=== PATIENT | female | born 1930 | race Caucasian/White ===

== ENCOUNTER 2020-01-28 18:12 | Inpatient (IN) | payer OTHER ==
--- OUTSIDE RECORDS SUMMARY | 2020-01-28 18:19 | XMS REPORT | Clinical Summary ---
:1930 Author Organization [facility] Address [address] [place] [address] Care Team Providers Name Role Phone MD Kiel Primary Care Provider Allergies Active Allergy Reactions Severity Noted Date Comments Angiotensin Iii,Human Other (See Comments) 11/13/2016 Clonidine Other (See Comments) 11/13/2016 Erythromycin GI Intolerance 11/13/2016 Canagliflozin Other (See Comments) 11/13/2016 Lisinopril Other (See Comments) 11/13/2016 Tetracyclines Other (See Comments) 11/13/2016 Metoprolol Succinate Other (See Comments) 11/13/2016 Medications Medication Sig Dispensed Refills Start Date End Date Status isosorbide mononitrate Take 120 mg by 0 Active (IMDUR) 120 MG 24 hr mouth daily. tablet potassium chloride Take 20 mEq by 0 Active (K-DUR,KLOR-CON) 10 MEQ mouth daily. CR tablet amLODIPine (NORVASC) Take 2.5 mg by 0 Active 2.5 mg tablet mouth daily. PARoxetine (PAXIL) 20 Take 20 mg by 0 Active MG tablet mouth every morning. atenolol (TENORMIN) 50 Take 50 mg by 0 Active MG tablet mouth daily. losartan (COZAAR) 100 Take 100 mg by 0 Active MG tablet mouth daily. rosuvastatin (CRESTOR) Take 20 mg by 0 Active 20 MG tablet mouth nightly. levothyroxine Take 50 mcg by 0 A ctive (SYNTHROID, LEVOXYL) 50 mouth every mcg tablet morning. glimepiride (AMARYL) 4 Take 4 mg by 0 Active MG tablet mouth 2 (two) times a day. furosemide (LASIX) 20 Take 20 mg by 0 Active mg tablet mouth daily. verapamil sustained Take 120 mg by 0 Active release (CALAN-SR) 120 mouth daily. MG SR tablet liraglutide (VICTOZA) Inject 1.2 mg 0 Active 0.6 mg/0.1 mL (18 mg/3 under the skin mL) pen injector daily with breakfast. empagliflozin Take 25 mg by 0 Ac tive (JARDIANCE) 25 mg mouth daily. tablet clopidogrel (PLAVIX) 75 Take 1 tablet (75 30 tablet 11 11/15/19 17 Active mg tablet mg total) by mouth daily. apixaban (ELIQUIS) 5 mg Take 5 mg by 0 Active tablet mouth 2 (two) times a day. ascorbic acid, vitamin Take 500 mg by 0 Active C, (VITAMIN C) 500 MG mouth daily. tablet turmeric root extract Take 500 mg by 0 Active 500 mg capsule mouth daily. nitroglycerin Place 0.4 mg 0 Act micaela (NITROSTAT) 0.4 MG SL under the tongue tablet every 5 (five) minutes as needed for chest pain. 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 Last Filed Vital Signs Not on file Plan of Treatment Health Maintenance Due Date Last Done Comments SHINGLES VACCINES (#1) 1980 65+ PNEUMOCOCCAL VACCINE (1 of 2 - PCV13) 10/31/1995 INFLUENZA VACCINE 01/23/2020 Implants Implanted Type Area In Flight Refueling System Repairer Device Shelf Model / Identifier Expiration Serial / Lot Date Accolade Mri Pacemaker - [id number] Cardiac Pacemaker N/A: B [place] 11/14/2019 [id number] / Implanted: 01/15/2018 at [facility] (Quantity not on file) Gen erators N/A [employer]- [id number] / [id number] Device Vasclr Clsr Baln Cath 10ml Lkng Syr 6fr 7fr Myn xgrip - [id number] Cardiovascular N/A: CARDINAL 09/21/2018 [id number] / Implanted: 11/13/2016 at [facility] (Quantity not on file) Imp lants N/A [facility] / [id number] Envelope Pcemkr Antbactl Fully Resorb Aigisrxr - [id number] Cardiovascular N/A: [employer] [id number] / Implanted: 01/15/2018 at [facility] (Quantity not on file) Implants N/A / Stent Cor Resolute Integrity Ztrlims-Eltng Otw 2.5x14m m - [id number] Coronary Stents N/A: [employer] [place] 07/31/2017 [id number] / Implanted: 11/13/2016 at [facility] (Quantity not on file) N/A - VASCULAR / [id number] [place] Results Not on fileafter 01/27/2019 Insurance Payer Benefit Plan / Subscriber ID Effective Dates Phone Addre ss Type Group MEDICARE MEDICARE PART A xxxxxxxxxxx 1995-Present [place], [place] Medicare AND B AETNA AETNA PPO OPEN xxxxxx 2000-Present PPO CHOICE Advance Directives For more information, please contact: [phone] Type Date 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
--- OUTSIDE RECORDS SUMMARY | 2020-01-28 18:19 | XMS REPORT | Continuity of Care Document ---
:1930 Author Organization [facility] t Address [address] [place] [address] Care Team Providers Name Role Phone Kiel SANDOVAL Primary Care Physician Bridger Narvaez MD Attending Clinician Aidan ERAZO S Attending Clinician Problems Condition Condition Condition Status Onset Resolution Last Treating Co mments Source Name Details Category Date Date Treatment Clinician Date 2nd degree 2nd degree Disease Active [place] atrioventr atrioventr 01-15 [facility] icular icular 00:00: st block block 00 Coronary Coronary Disease Active [place] artery artery 11-13 [facility] disease disease 00:00: st 00 Allergies, Adverse Reactions, Alerts Allergy Allergy Status Severity Reaction(s) Onset Inactive Treating Comm ents Source Name Type Date Date Clinician Angioten Propensi Active Other (See Ney swanson sin ty to Comments) 11-13 [facility] Iii,Margareth adverse 00:00: st n reaction 00 s to drug Clonidin Propensi Active Other (See Ney swanson e ty to Comments) 11-13 [facility] adverse 00:00: st reaction 00 s to drug Erythrom Propensi Active GI [place] ycin ty to Intolerance 11-13 Metho di adverse 00:00: st reaction 00 s to drug Canaglif Propensi Active Other (See Ney swanson lozin ty to Comments) 11-13 [facility] adverse 00:00: st reaction 00 s to drug Lisinopr Propensi Active Other (See [place] il ty to Comments) 11-13 [facility] adverse 00:00: st reaction 00 s to drug Tetracyc Propensi Active Other (See [place] lines ty to Comments) 11-13 [facility] adverse 00:00: st reaction 00 s to drug Metoprol Propensi Active Other (See [place] ol ty to Comments) 11-13 [facility] Succinat adverse 00:00: st e reaction 00 s to drug Family History Family Member Diagnosis Comments Start Date Stop Date Source Natural father Diabetes [facility] Natural father Heart disease [facility] Natural mother Diabetes [facility] Natural mother Heart disease [facility] Natural mother Hypertension [facility] Social History Social Habit Start Date Stop Date Quantity Comments Source Sex Assigned At [facility] Alcohol intake 2018-01-21 2018-01-21 Current [facility] 00:00:00 00:00:00 non-drinker of alcohol (finding) Smoking Status Start Date Stop Date Source Never smoker [place] t Medications Ordered Filled Start Stop Current Ordering Indication Dosage Frequency Signature Comments Components Source Medication Medication Date Date Medication? Clinician (SIG) Name Name isosorbide Yes 120mg QD Take 120 [place] mononitrate 7-27 mg by [facility] (IMDUR) 120 12:54: mouth st MG 24 hr 25 daily. tablet potassium Yes 20meq QD Take 20 [place] chloride 7-27 mEq by [facility] (K-DUR,KLOR 12:54: mouth st -CON) 10 25 daily. MEQ CR tablet amLODIPine Yes 2.5mg QD Take 2.5 [place] (NORVASC) 7-27 mg by [facility] 2.5 mg 12:54: mouth st tablet 25 daily. PARoxetine 2018 Yes 20mg QD Take 20 mg [place] (PAXIL) 20 7-27 by mouth Metho di MG tablet 12:54: every st 25 morning. atenolol 20180 Yes 50mg QD Take 50 mg Maura ston (TENORMIN) 7-27 by mouth Metho di 50 MG 12:54: daily. st tablet 25 losartan Yes 100mg QD Take 100 [place] (COZAAR) 7-27 mg by [facility] 100 MG 12:54: mouth st tablet 25 daily. rosuvastati 2018-0 Yes 20mg QD Take 20 mg Renee n (CRESTOR) 7-27 by mouth Meth edel 20 MG 12:54: nightly. st tablet 25 levothyroxi 2018-0 Yes 50ug QD Take 50 Maura ston ne 7-27 mcg by [facility] (SYNTHROID, 12:54: mouth st LEVOXYL) 50 25 every mcg tablet morning. glimepiride 2018-0 Yes 4mg Q.5D Take 4 mg [place] (AMARYL) 4 7-27 by mouth 2 Met hodi MG tablet 12:54: (two) st 25 times a day. furosemide 2018-0 Yes 20mg QD Take 20 mg [place] (LASIX) 20 7- by mouth Metho di mg tablet 12:54: daily. st 25 verapamil 2017-0 Yes 120mg QD Take 120 [place] ston sustained 7-27 mg by [facility] release 12:54: mouth st (CALAN-SR) 25 daily. 120 MG SR tablet liraglutide Yes 1.2mg QD Inject 1.2 Renee (VICTOZA) 7-27 mg under Method i 0.6 mg/0.1 12:54: the skin st mL (18 mg/3 25 daily with mL) pen breakfast. injector empaglifloz 2017-0 Yes 25mg QD Take 25 mg Renee in 7- by mouth [facility] (JARDIANCE) 12:54: daily. st 25 mg 25 tablet apixaban 0 Yes 5mg Q.5D Take 5 mg [place] (ELIQUIS) 5 7- by mouth 2 Me [place] mg tablet 12:54: (two) st 25 times a day. ascorbic 2018-0 Yes 500mg QD Take 500 [place] acid, 7-27 mg by [facility] vitamin C, 12:54: mouth st (VITAMIN C) 25 daily. 500 MG tablet turmeric 2018-0 Yes 500mg QD Take 500 [place] root 7-27 mg by [facility] extract 500 12:54: mouth st mg capsule 25 daily. nitroglycer 2018-[address] 0.4 [place] in 7-27 mg under [facility] (NITROSTAT) 12:54: the tongue st 0.4 MG SL 25 every 5 tablet (five) minutes as needed for chest pain. clopidogrel 2017 Yes 75mg QD Take 1 [place] (PLAVIX) 75 5-24 tablet (75 Me th[place] mg tablet 00:00: mg total) st 00 by mouth daily. Procedures This patient has no known procedures. Plan of Care Planned Activity Planned Date Details Comments Source Future Scheduled 2020-01-23 INFLUENZA VACCINE [place] [facility] 00:00:00 [code = INFLUENZA VACCINE] Future Scheduled 1995[birth year]10[birth year] 65+ PNEUMOCOCCAL [facility] 00:00:00 VACCINE (1 of 2 - PCV13) [code = 65+ PNEUMOCOCCAL VACCINE (1 of 2 - PCV13)] Future Scheduled 1980 SHINGLES VACCINES (#1) [place] [facility] 00:00:00 [code = SHINGLES VACCINES (#1)] Encounters Start End Encounter Admission Attending Care Care Encounter Source Date/Time Date/Time Type Type Clinicians Facility Department ID 2019-09-17 2019-09-17 Refill Brice HIHILDA [id number] 00:00:00 00:00:00 [facility] [id number] Surgical [id number] Specialti [id number] [address] [place] 2019-08-01 2019-08-01 Refill CUCA Bermudez [id number] 00:00:00 00:00:00 [facility] [id number] Surgical [id number] Specialti [id number] es [address] [place] 2019-03-12 2019-03-12 Office Aidan HIHILDA [id number] 14:13:03 15:41:22 Visit [facility] [id number] Surgical [id number] Specialti [id number] es [address] [place] Results This patient has no known results.
[2020-01-28 18:55] LABS: Absolute Lymphocytes (CBC) 0.7 K/uL (0.7-4.9); Basophils % 0.3 % (0-1.3); Hematocrit 34.7 % (36.0-45.0); Lymphocytes % 4.6 % (15.3-44.8); MPV 7.9 fL (7.6-11.3); RBC Red Blood Cell Count 3.84 M/uL (3.86-4.86)
--- NOTE | 2020-01-28 19:03 | RAD REPORT ---
EXAM DESCRIPTION: CT - Head Brain Wo Cont - 01/28/2020 6:55 pm CLINICAL HISTORY: NUMBNESS Headache, drowsiness COMPARISON: HEAD BRAIN W O CONTRAST dated 12/18/2012; HEAD BRAIN W O CONTRAST dated 12/15/2008 TECHNIQUE: All CT scans are performed using dose optimization technique as appropriate and may inclu de automated exposure control or mA/KV adjustment according to patient size. FINDINGS: No intracranial hemorrhage, hydrocephalus or extra-axial fluid collection.Mild generalized brain atrophy.No areas of brain edema or evidence of midline shift. The paranasal sinuses and mastoids are clear. The calvarium is intact. IMPRESSION: No acute intracranial abnormality.
[2020-01-28 19:05] LABS: Albumin 2.9 g/dL (3.4-5.0); Bilirubin Direct 0.4 mg/dL (0-0.2); Bilirubin Total 1.4 mg/dL (0.2-1.0); Potassium 4.8 mmol/L (3.5-5.1); Protein, Total 6.5 g/dL (6.4-8.2)
--- NOTE | 2020-01-28 19:06 | RAD REPORT ---
EXAM DESCRIPTION: CT - Abdomen Pelvis Wo Contrast - 01/28/2020 6:58 pm CLINICAL HISTORY: Abdominal pain. ABD PAIN COMPARISON: No comparisons TECHNIQUE: CT imaging of the abdomen and pelvis was performed without contrast. Solid organ, bowel a nd vascular assessment is limited due to lack of IV and oral contrast. All CT scans are performed using dose optimization technique as appropriate and may include automated exposure control or mA/KV adjustment according to patient size. FINDINGS: The lower lung orellana are clear.Small hiatal hernia. The liver, spleen, pancreas, adrenal glands and right kidney are within normal limits for a limited n on-contrast examination. Punctate calculus is seen inferior left kidney. The gallbladder is mildly di stended. Aortoiliac atherosclerosis. No bowel obstruction, free air, free fluid or abscess. A large amount of stool is retained in the sig moid colon where numerous diverticula are present. There is also inflammation in the fat surrounding the sigmoid colon. Mild extraluminal air bubbles are present in the region as well. Appendectomy susp ected. The osseous structures are within normal limits. IMPRESSION: Moderately severe acute sigmoid diverticulitis is suspected with mild extraluminal air p resent, likely related to diverticular perforation. No peridiverticular abscess seen. There is signif icant retained stool in the rectosigmoid colon. A limited non-contrast examination was performed as detailed.
--- NOTE | 2020-01-28 19:40 | EDPHYS ---
Physician Documentation [facility] Name: Mallika Ernst Age: 89 yrs Sex: Female : 1930 Arrival Date: 01/28/2020 Time: 18:17 Bed 19 Private MD: ED Physician Hasmukh Singh HPI: 01/27 19:35 This 89 yrs old Female presents to ER via EMS with complaints of abdominal kb pain. 19:35 The patient presents with abdominal pain right lower quadrant. Onset: The kb symptoms/episode began/occurred yesterday. The symptoms do not radiate. Associated signs and symptoms: Pertinent negatives: nausea, vomiting, and diarrhea, constipation, fever. The symptoms are described as constant. Modifying factors: The symptoms are alleviated by nothing, the symptoms are aggravated by nothing. Severity of pain: At its worst the pain was moderate in the emergency department the pain is unchanged. The patient has experienced similar episodes in the past. The patient has not recently seen a physician. Pt reports pain to RLQ and numbness around mouth. States pain started yesterday and numbness has been going on for a long time. Denies n/v/d/constipation. States she had similar episode about 6 weeks ago, but this time the pain is more severe. Called Dr Dyson and was told to come to the ER. Historical: - Allergies: 18:32 canagliflozin; ph 18:32 Clonidine; ph 18:32 Erythromycin; ph 18:32 Lisinopril; ph 18:32 metoprolol succinate; ph 18:32 TETRACYCLINES; ph - Immunization history:: Adult Immunizations unknown. - Social history:: Smoking status: Patient denies any tobacco usage or history of. ROS: 19:33 Constitutional: Negative for fever, chills, and weight loss, Cardiovascular: Negative kb for chest pain, palpitations, and edema, Respiratory: Negative for shortness of breath, cough, wheezing, and pleuritic chest pain, Back: Negative for injury and pain, MS/Extremity: Negative for injury and deformity, Skin: Negative for injury, rash, and discoloration. 19:33 Abdomen/GI: Positive for abdominal pain, Negative for nausea, vomiting, and diarrhea, constipation, abdominal cramps, abdominal distension, anorexia. 19:33 Neuro: Positive for numbness. Exam: 19:37 Constitutional: This is a well developed, well nourished patient who is awake, alert, kb and in no acute distress. Head/Face: Normocephalic, atraumatic. Neck: Trachea midline, no thyromegaly or masses palpated, and no cervical lymphadenopathy. Supple, full range of motion without nuchal rigidity, or vertebral point tenderness. No Meningismus. Chest/axilla: Normal chest wall appearance and motion. Nontender with no deformity. No lesions are appreciated. Cardiovascular: Regular rate and rhythm with a normal S1 and S2. No gallops, murmurs, or rubs. Normal PMI, no JVD. No pulse deficits. Respiratory: Lungs have equal breath sounds bilaterally, clear to auscultation and percussion. No rales, rhonchi or wheezes noted. No increased work of breathing, no retractions or nasal flaring. Back: No spinal tenderness. No costovertebral tenderness. Full range of motion. Skin: Warm, dry with normal turgor. Normal color with no rashes, no lesions, and no evidence of cellulitis. MS/ Extremity: Pulses equal, no cyanosis. Neurovascular intact. Full, normal range of motion. Neuro: Awake and alert, GCS 15, oriented to person, place, time, and situation. Cranial nerves II-XII grossly intact. Motor strength 5/5 in all extremities. Sensory grossly intact. Cerebellar exam normal. Normal gait. 19:37 Abdomen/GI: Inspection: abdomen appears normal, Bowel sounds: normal, in all quadrants, Palpation: soft, in all quadrants, mild abdominal tenderness, in the left upper quadrant and left lower quadrant, moderate abdominal tenderness, in the right upper quadrant and right lower quadrant. Vital Signs: 18:21 BP 104 / 43; Pulse 65; Resp 18; Temp 97.8; Pulse Ox 96% on R/A; Weight 58.06 kg; Height ph 5 ft. 2 in. (157.48 cm); 20:50 BP 84 / 39; Pulse 59; Resp 20; Pulse Ox 94% ; ao 21:20 BP 80 / 40; Pulse 59; Resp 18; Pulse Ox 94% ; Pain 0/10; ao 21:35 BP 81 / 39; Pulse 57; Resp 16; Pulse Ox 96% on 2 lpm NC; ao 22:09 BP 76 / 43; Pulse 60; Resp 20; Pulse Ox 92% on 2 lpm NC; Pain 0/10; ao 22:25 BP 81 / 47; Pulse 61; Resp 16; Pulse Ox 92% ; ao 22:40 BP 72 / 42; Pulse 62; Resp 18; Pulse Ox 94% 2 lpm ; ao 23:00 BP 75 / 61; Pulse 60; Resp 20; Pulse Ox 92% on 2 lpm NC; ao 23:15 BP 77 / 49; Pulse 59; Resp 16; Pulse Ox 92% on 2 lpm NC; ao 18:21 Body Mass Index 23.41 (58.06 kg, 157.48 cm) ph MDM: 18:18 Patient medically screened. kb 19:34 Data reviewed: vital signs, nurses notes. Data interpreted: Pulse oximetry: on room air kb is 96 %. Interpretation: normal. Counseling: I had a detailed discussion with the patient and/or guardian regarding: the historical points, exam findings, and any diagnostic results supporting the discharge/admit diagnosis, lab results, radiology results, the need for further work-up and treatment in the hospital. Physician consultation: Darvin Almodovar MD was contacted at 19:35, regarding consult, patient's condition, and will see patient in inpatient room. 19:35 Physician consultation: Dayday Dyson MD was contacted at 19:35, regarding admission, to the medical/surgical unit. patient's condition, and will see patient in inpatient room, Wants the following admission orders put in: Cipro 250mg IV BID, Flagyl 500mg IV TID, Moderate sliding scale, 1/2NS at 50cc/hr, zofran 4mg Q6 PRN, dilaudid 1mg Q6 PRN.. 01/27 18:23 Order name: Basic Metabolic Panel 01/27 18:23 Order name: CBC with Diff 01/27 18:23 Order name: Hepatic Function 01/27 18:23 Order name: Lipase 01/27 19:06 Order name: Basic Metabolic Panel; Complete Time: 19:07 EDMS 01/27 19:06 Order name: Liver (Hepatic) Function; Complete Time: 19:07 EDMS 01/27 19:06 Order name: Lipase; Complete Time: 19:07 EDMS 01/27 19:07 Order name: CBC with Automated Diff; Complete Time: 19:09 EDMS 01/27 19:10 Order name: CREATININE WHOLE BLOOD; Complete Time: 19:11 EDMS 01/27 19:33 Order name: Protime (+inr) kb 01/27 19:33 Order name: Ptt, Activated kb 01/27 20:30 Order name: Protime (+INR); Complete Time: 20:33 EDMS 01/27 20:30 Order name: PTT, Activated Partial Thromb; Complete Time: 20:33 EDMS 01/28 01:39 Order name: Glucose, Ancillary Testing; Complete Time: 01:40 EDMS 01/27 18:23 Order name: CT Abd/Pelvis - IV Contrast Only kb 01/27 18:23 Order name: CT Head Brain wo Cont kb 01/27 19:06 Order name: CT; Complete Time: 19:07 EDMS 01/27 19:08 Order name: CT; Complete Time: 19:09 EDMS 01/28 06:04 Order name: CBC with Automated Diff EDMS 01/28 06:28 Order name: Basic Metabolic Panel EDMS 01/28 06:56 Order name: Manual Differential EDMS 01/28 07:31 Order name: Glucose, Ancillary Testing EDMS 01/27 18:23 Order name: IV Saline Lock; Complete Time: 18:52 kb 01/27 18:23 Order name: Labs collected and sent; Complete Time: 18:52 kb Administered Medications: 19:44 Drug: Flagyl 500 mg Volume: 100 ml; Route: IVPB; Rate: 200 ml/hr; Infused Over: 30 ao mins; Site: left antecubital; 21:18 Follow up: IV Status: Completed infusion; IV Intake: 100ml ao 19:45 Drug: fentaNYL (PF) 25 mcg Route: IVP; Site: left antecubital; ao 21:18 Follow up: Response: No adverse reaction; RASS: Light sedation (-2) ao 19:45 Drug: Zofran (Ondansetron) 4 mg Route: IVP; Site: left antecubital; ao 21:18 Follow up: Response: No adverse reaction ao 19:45 Drug: NS 0.45 % 1000 ml Route: IV; Rate: 50 ml/hr; Site: left antecubital; ao 23:30 Follow up: IV Status: Completed infusion; IV Intake: 500ml ao 20:51 Drug: NS 0.9% 500 ml Route: IV; Rate: bolus; Site: left forearm; ao 23:31 Follow up: IV Status: Completed infusion; IV Intake: 500ml ao 21:17 Drug: Cipro 200 mg Volume: 100 ml; Route: IVPB; Infused Over: 60 mins; Site: left ao antecubital; 23:31 Follow up: IV Status: Completed infusion; IV Intake: 252ml ao 22:05 Drug: NS 0.9% 500 ml Route: IV; Rate: bolus; Site: left forearm; ao 23:31 Follow up: IV Status: Completed infusion; IV Intake: 500ml ao 22:06 Drug: Zofran (Ondansetron) 4 mg Route: IVP; Site: left forearm; ao 23:31 Follow up: Response: No adverse reaction ao Disposition: 01/28 10:42 Co-signature as Attending Physician, Hasmukh Singh MD I agree with the assessment and kdr plan of care. Disposition: 01/28/20 19:40 Hospitalization ordered by Dayday Dyson for Inpatient Admission. Preliminary diagnosis is Diverticulitis of intestine, part unspecified, with perforation and abscess without bleeding - perforation, no abscess. - Bed requested for [facility] ER HOLD. - Status is Inpatient Admission. iw - Condition is Stable. - Problem is new. - Symptoms are unchanged. Signatures: Dispatcher [employer] EDMS Argentina Arreola, GALLEY HAND-C GALLEY HAND-CkHasmukh Gonzales MD MD [facility] Janae Us RN RN Idania Menjivar RN RN Shea Lowe, [place] MYERS Wesley Keenan RN RN ao Corrections: (The following items were deleted from the chart) 01/27 19:41 19:35 Physician consultation: Dayday Dyson MD was contacted at 19:35, regarding kb admission, to the medical/surgical unit. patient's condition, and will see patient in inpatient room, 21:02 19:40 Hospitalization Ordered by Dayday Dyson MD for Inpatient Admission. Preliminary cg diagnosis is Diverticulitis of intestine, part unspecified, with perforation and abscess without bleeding - perforation, no abscess. Bed requested for Telemetry/MedSurg (Inpatient). Status is Inpatient Admission. Condition is Stable. Problem is new. Symptoms are unchanged. kb 22:03 21:02 01/28/2020 19:40 Hospitalization Ordered by Dayday Dyson MD for Inpatient cg Admission. Preliminary diagnosis is Diverticulitis of intestine, part unspecified, with perforation and abscess without bleeding - perforation, no abscess. Bed requested for Telemetry/MedSurg (Inpatient). Status is Inpatient Admission. Condition is Stable. Problem is new. Symptoms are unchanged. 23:12 22:03 01/28/2020 19:40 Hospitalization Ordered by Dayday Dyson MD for Inpatient cg Admission. Preliminary diagnosis is Diverticulitis of intestine, part unspecified, with perforation and abscess without bleeding - perforation, no abscess. Bed requested for Intensive Care Unit. Status is Inpatient Admission. Condition is Stable. Problem is new. Symptoms are unchanged. 01/28 08:29 08 23:12 01/28/2020 19:40 Hospitalization Ordered by Dayday Dyson MD for Inpatient iw Admission. Preliminary diagnosis is Diverticulitis of intestine, part unspecified, with perforation and abscess without bleeding - perforation, no abscess. Bed requested for [facility] ER HOLD. Status is Inpatient Admission. Condition is Stable. Problem is new. Symptoms are unchanged. 01/28 08:32 08:29 01/28/2020 19:40 Hospitalization Ordered by Dayday Dyson MD for Inpatient iw Admission. Preliminary diagnosis is Diverticulitis of intestine, part unspecified, with perforation and abscess without bleeding - perforation, no abscess. Bed requested for [facility] ER HOLD. Status is Inpatient Admission. Condition is Stable. Problem is new. Symptoms are unchanged. iw
--- NOTE | 2020-01-28 19:40 | ER ---
Nurse's Notes [facility] Name: Mallika Ernst Age: 89 yrs Sex: Female : 1930 Arrival Date: 01/28/2020 Time: 18:17 Bed 19 Private MD: Diagnosis: Diverticulitis of intestine, part unspecified, with perforation and abscess without bleeding-perforation, no abscess Presentation: 01/27 18:21 Chief complaint: EMS states: Pt from home, reports RLQ last night, today had L arm ph numbness and SOB w/ exertion, denies fever, chills, cough, N/V/D, VSS. Coronavirus screen: Client denies travel out of the [place] in the last 14 days. At this time, the client does not indicate any symptoms associated with coronavirus-19. The client reports previous COVID testing was negative. reports COVID test approx 2 weeks ago. Ebola Screen: No symptoms or risks identified at this time. Initial Sepsis Screen: Does the patient meet any 2 criteria? No. Patient's initial sepsis screen is negative. Does the patient have a suspected source of infection? No. Patient's initial sepsis screen is negative. Risk Assessment: Do you want to hurt yourself or someone else? Patient reports no desire to harm self or others. Onset of symptoms was January 28, 2020. 18:21 Method Of Arrival: EMS: [facility] ph 18:21 Method Of Arrival: EMS: [facility] ph 18:21 Acuity: DIOGENES 3 ph Historical: - Allergies: 18:32 canagliflozin; ph 18:32 Clonidine; ph 18:32 Erythromycin; ph 18:32 Lisinopril; ph 18:32 metoprolol succinate; ph 18:32 TETRACYCLINES; ph - Immunization history:: Adult Immunizations unknown. - Social history:: Smoking status: Patient denies any tobacco usage or history of. Screenin:27 Abuse screen: Denies threats or abuse. Denies injuries from another. Nutritional ph screening: No deficits noted. Tuberculosis screening: No symptoms or risk factors identified. Fall Risk None identified. Assessment: 18:59 General: Appears in no apparent distress. comfortable, well groomed, Behavior is calm, ph cooperative, appropriate for age, Denies fever, feeling ill. Pain: Complains of pain in right lower quadrant. Neuro: Level of Consciousness is awake, alert, obeys commands, Oriented to person, place, time, situation, Reports numbness in left arm, now resolved. Cardiovascular: Reports shortness of breath, Denies chest pain, lightheadedness, nausea, Capillary refill < 3 seconds in bilateral fingers Patient's skin is warm and dry. Respiratory: Reports shortness of breath on exertion Airway is patent Respiratory effort is even, unlabored, Respiratory pattern is regular, symmetrical, Denies cough. GI: Abdomen is round Reports lower abdominal pain, Patient currently denies diarrhea, nausea, vomiting. Derm: Skin is intact, is healthy with good turgor, Skin is pink, warm \T\ dry. Musculoskeletal: Circulation, motion, and sensation intact. Range of motion: intact in all extremities. 20:50 Reassessment: Patient fainted when trying to get up to the bathroom. BP was 80/40. satish Arreola NP notified and ordered 500 NS Bolus. 21:30 Reassessment: Provided with O2 NC per hospital protocol. ao 22:00 Reassessment: Called Dr Dyson to notified low blood pressure. Ordered 500 NS bolus ao and Zofran 4 mg Q4hr as needed for nausea. also want an ICU bed. Dr Dyson was notified that unknown if ICU bed available and charge nurse will be notified. 22:17 Reassessment: this RN spoke to dry house operator Shea YMERS on need for ICU bed was bb informed no ICU beds are available requested pt be transferred for higher level of care. Transfer refused by Dr Dyson according to Shea MYERS. 23:00 Reassessment: Dr Almodovar notified of need for central line per Dr Dyson. bb 23:26 Reassessment: Patient is admitted to the hospital. See [facility] for documentation. ao 01/28 07:00 Reassessment: RECD REPORT FROM MARVIN MYERS. 89YO WF P/W WEAKNESS AND HYPOTENSION. ICU ADMIT bp IN PROCESS. SEE [facility] FOR FURTHER DOCUMENTATION. Vital Signs: 01/27 18:21 BP 104 / 43; Pulse 65; Resp 18; Temp 97.8; Pulse Ox 96% on R/A; Weight 58.06 kg; Height ph 5 ft. 2 in. (157.48 cm); 20:50 BP 84 / 39; Pulse 59; Resp 20; Pulse Ox 94% ; ao 21:20 BP 80 / 40; Pulse 59; Resp 18; Pulse Ox 94% ; Pain 0/10; ao 21:35 BP 81 / 39; Pulse 57; Resp 16; Pulse Ox 96% on 2 lpm NC; ao 22:09 BP 76 / 43; Pulse 60; Resp 20; Pulse Ox 92% on 2 lpm NC; Pain 0/10; ao 22:25 BP 81 / 47; Pulse 61; Resp 16; Pulse Ox 92% ; ao 22:40 BP 72 / 42; Pulse 62; Resp 18; Pulse Ox 94% 2 lpm ; ao 23:00 BP 75 / 61; Pulse 60; Resp 20; Pulse Ox 92% on 2 lpm NC; ao 23:15 BP 77 / 49; Pulse 59; Resp 16; Pulse Ox 92% on 2 lpm NC; ao 18:21 Body Mass Index 23.41 (58.06 kg, 157.48 cm) ph ED Course: 18:17 Patient arrived in ED. ph 18:18 Argentina Arre[facility] FNP-C [facility] kb 18:18 Hasmukh Singh MD is Attending Physician. kb 18:21 Idania Menjivar, [place] is Primary Nurse. ph 18:26 Triage completed. ph 18:27 Arm band placed on Patient placed in an exam room, on a stretcher, on library monitor, ph on pulse oximetry. 18:27 Patient has correct armband on for positive identification. Placed in gown. Bed in low ph position. Call light in reach. Side rails up X2. monitor technician on. Pulse ox on. NIBP on. 18:40 Inserted saline lock: 20 gauge in right antecubital area, using aseptic technique. ao ,using aseptic technique. Day Shift tech. 19:39 Dayday Dyson MD is Hospitalizing Provider. kb 23:08 Procedure consent signed by patient. bb 23:30 No provider procedures requiring assistance completed. Patient admitted, IV remains in ao place. 01/28 07:08 Primary Nurse role handed off by Idania Menjivar, [place] bp 07:08 Alex Gomes, [place] is Primary Nurse. bp Administered Medications: 01/27 19:44 Drug: Flagyl 500 mg Volume: 100 ml; Route: IVPB; Rate: 200 ml/hr; Infused Over: 30 ao mins; Site: left antecubital; 21:18 Follow up: IV Status: Completed infusion; IV Intake: 100ml ao 19:45 Drug: fentaNYL (PF) 25 mcg Route: IVP; Site: left antecubital; ao 21:18 Follow up: Response: No adverse reaction; RASS: Light sedation (-2) ao 19:45 Drug: Zofran (Ondansetron) 4 mg Route: IVP; Site: left antecubital; ao 21:18 Follow up: Response: No adverse reaction ao 19:45 Drug: NS 0.45 % 1000 ml Route: IV; Rate: 50 ml/hr; Site: left antecubital; ao 23:30 Follow up: IV Status: Completed infusion; IV Intake: 500ml ao 20:51 Drug: NS 0.9% 500 ml Route: IV; Rate: bolus; Site: left forearm; ao 23:31 Follow up: IV Status: Completed infusion; IV Intake: 500ml ao 21:17 Drug: Cipro 200 mg Volume: 100 ml; Route: IVPB; Infused Over: 60 mins; Site: left ao antecubital; 23:31 Follow up: IV Status: Completed infusion; IV Intake: 252ml ao 22:05 Drug: NS 0.9% 500 ml Route: IV; Rate: bolus; Site: left forearm; ao 23:31 Follow up: IV Status: Completed infusion; IV Intake: 500ml ao 22:06 Drug: Zofran (Ondansetron) 4 mg Route: IVP; Site: left forearm; ao 23:31 Follow up: Response: No adverse reaction ao Intake: 21:18 IV: 100ml; Total: 100ml. ao 23:30 IV: 500ml; Total: 600ml. ao 23:31 IV: 252ml; Total: 852ml. ao 23:31 IV: 500ml; Total: 1352ml. ao 23:31 IV: 500ml; Total: 1852ml. ao Outcome: 19:40 Decision to Hospitalize by Provider. kb 23:30 Admitted to ER Hold. Please see [facility] for further documentation. ao 23:30 critical 23:30 Instructed on the need for admit. 01/28 08:32 Patient left the ED. iw Signatures: Argentina Arreola, TAMMY-C TAMMY-Kelsey Suarez RN RN bb Janae Us RN RN iw Idania Menjivar RN RN Marvin Keenan RN RN ao Alex Gomes RN RN bp Corrections: (The following items were deleted from the chart) 01/27 19:01 18:21 Pulse 65bpm; Resp 18bpm; Pulse Ox 96% RA; Temp 97.8F; 58.06 kg; Height 5 ft. 2 ph in.; BMI: 23.4; ph 21:30 20:50 BP 80 / 40; Pulse 59bpm; Resp 18bpm; Pulse Ox 94%; Pain 0/10; ao ao
[2020-01-28] MEDS ORDERED: NACHLORIDE 0.45% 1,000 ML IV ONE (19:44)
[2020-01-28] MEDS ORDERED: FENTANYL CITR 100 MCG/2 ML ONE (19:44)
[2020-01-28] MEDS ORDERED: Ciprofloxacin 200mg IV 200 MG/100 ML IV.SOLN. IV ONE (19:44)
[2020-01-28] MEDS ORDERED: ONDANSETRON 4 MG/2 ML VIAL ONE (19:44)
[2020-01-28] MEDS ORDERED: METRONIDAZOLE 500mg IVPB 500 MG/100 ML BAG IV ONE (19:44)
[2020-01-28 20:29] LABS: Protime INR 2.11
[2020-01-28] MEDS ORDERED: NACHLORIDE 0.45% 1,000 ML IV SCH (23:16)
[2020-01-28] MEDS: INSULIN -REGULAR HUMAN 50 UNIT/0.5 ML ML SQ SCH (23:16)
[2020-01-28] MEDS ORDERED: HYDROMORPHONE HCL 1 MG/ML INJ IV PRN (23:16)
[2020-01-28] MEDS: Ciprofloxacin 200mg IV 200 MG/100 ML IV.SOLN. IV SCH (23:16)
[2020-01-28] MEDS ORDERED: NOREPINEPHRINE 4 MG in D5W 250 ML IV PRN (23:16)
[2020-01-28] MEDS ORDERED: GLUCAGON 1 MG/VIAL IM PRN (23:16)
[2020-01-28] MEDS ORDERED: D50W 25 GM/50 ML SYRINGE/VIAL IV PRN (23:16)
[2020-01-28] MEDS ORDERED: ONDANSETRON 4 MG/2 ML VIAL IV PRN (23:16)
[2020-01-28] MEDS ORDERED: NOREPINEPHRINE 4mg/D5W 250mL 4 MG/250 ML BAG IV ONE (23:30)
[2020-01-28] MEDS ORDERED: NA CHLORIDE 0.9% 1,000 ML ONE (23:52)
--- NOTE | 2020-01-29 00:30 | P.HP ---
Date of Service: 01/28/20 PC: I was asked to console follow on this 89-year-old female who presented to the emergency room with severe lower abdominal pain. HPC: Patient and not feeling well earlier this week. Thought she felt something tear loose in her words yesterday. Pain intensified and she came to the emergency room PMH: History of CHF, coronary artery disease, insulin-dependent diabetes mellitus, previous strokes, angina PSHx: Previous pacemaker, heart stents, hysterectomy, appendectomy SOC: Allergic to tetracyclines, Norvasc, hydrochlorothiazide, clonidine, azithromycin, Toprol SYS REVIEW: States she was actually in fairly good health. Has not felt good this week however. Has not been drinking much fluids, last BM was about 48 hr ago. O/E awake alert comfortable at the moment BP 80/60 HEENT: Not jaundice Chest: Air entry equal bilaterally, pacemaker left-sided chest ABD: Abdomen is distended, with guarding and tenderness in these lower suprapubic area LOCO: Intact DATA: Elevated white cell count, CT scan shows acute diverticulitis with possible microperforation no evidence of any abscess IMPRESSION: Acute diverticulitis with micro perforation PLAN: The patient will be admitted at this time for IV fluids, antibiotics, and close observation. She will be going to the ICU for monitoring. She does not require surgical intervention at the moment,
--- NOTE | 2020-01-29 00:34 | P.OP ---
Date of Service: 01/29/20 Preoperative diagnosis: Hypotension, and lack of vascular access Postprocedural diagnosis: The same Procedure performed: Insertion of right subclavian venous catheter (triple- lumen) Attending: Dr. Almodovar Findings and Operative Technique The patient was positioned in the middle of the a gurney with an IV bag between her shoulders. The area of the right subclavicular area was then prepped with a chlorhexidine solution. She was draped in usual aseptic manner. After infiltrating will 1% lidocaine to allow for adequate analgesia, a finer needle was used to cannulate the subclavian vein. It was found on the 2nd pass of the needle. With good venous blood flow having been established a guidewire was passed down through this needle. The needle was then removed and using a modified Seldinger technique the insertion site was gently dilated. The dilator was taken off the wire and replaced with the triple-lumen catheter. The catheter was then passed down the wire taking care not to allow the wire to advance to approximately 15 cm at the skin level. At this point the guidewire was removed. The catheter flushed easily. It was packed with normal saline. The catheter was then sutured in place with the catheter pulled her. A sterile dressing was applied. A chest x-ray is pending. At the completion of the procedure the patient was in a stable condition.
--- NOTE | 2020-01-29 00:36 | P.PN ---
Date of Service: 01/29/20 S: Patient is well after her procedure, no specific complaints. Just states she has a low bit of nausea. O: Vital signs are stable, still has blood pressure in the 70s systolic. Chest x-ray shows catheter laying in good position no evidence of any pneumothorax. A successful insertion of central line P: May use central line, official report still pending.
[2020-01-29] MEDS ORDERED: ONDANSETRON 4 MG/2 ML VIAL ONE (00:57)
[2020-01-29] MEDS: METRONIDAZOLE 500mg IVPB 500 MG/100 ML BAG IV SCH ×3 (01:00→17:05)
[2020-01-29] MEDS ORDERED: INSULIN -REGULAR HUMAN 50 UNIT/0.5 ML ML ONE (01:44)
[2020-01-29] MEDS ORDERED: METRONIDAZOLE 500mg IVPB 500 MG/100 ML BAG IV ONE ×4 (03:56→23:48)
[2020-01-29 05:50] LABS: Absolute Lymphocytes (CBC) 0.9 K/uL (0.7-4.9); Basophils % 0.1 % (0-1.3); Hematocrit 33.7 % (36.0-45.0); Lymphocytes % 4.1 % (15.3-44.8); MPV 8.4 fL (7.6-11.3); RBC Red Blood Cell Count 3.67 M/uL (3.86-4.86)
[2020-01-29 06:21] LABS: Potassium 5.2 mmol/L (3.5-5.1)
[2020-01-29 06:56] LABS: Blood Morphology Comment NOT SEEN (NOT SEEN); Dohle Bodies PRESENT; Platelet Estimate ADEQ
[2020-01-29] MEDS: INSULIN -REGULAR HUMAN 50 UNIT/0.5 ML ML SQ SCH ×4 (07:30→20:58)
[2020-01-29] MEDS: HOME MED 1 EA UNK (Empagliflozin [Jardiance] 25 MG) PO SCH (09:00)
[2020-01-29] MEDS: atenoloL 50 MG TAB PO SCH (09:00)
[2020-01-29] MEDS: ISOSORBIDE MONO SR 60 MG TAB PO SCH (09:00)
[2020-01-29] MEDS: Ciprofloxacin 200mg IV 200 MG/100 ML IV.SOLN. IV SCH ×2 (09:58→21:12)
[2020-01-29] MEDS: CLOPIDOGREL 75 MG TABLET PO SCH (09:59)
[2020-01-29] MEDS: APIXABAN 2.5 MG TABLET PO SCH ×2 (10:00→20:58)
[2020-01-29] MEDS: DULOXETINE 30 MG CAP PO SCH (10:00)
[2020-01-29] MEDS ORDERED: CLOPIDOGREL 75 MG TABLET ONE (10:04)
[2020-01-29] MEDS ORDERED: Ciprofloxacin 200mg IV 200 MG/100 ML IV.SOLN. IV ONE ×2 (10:05→21:21)
--- NOTE | 2020-01-29 10:16 | P.HP ---
Certification for Inpatient Patient admitted to: Inpatient With expected LOS: >2 Midnights Practitioner: I am a practitioner with admitting privileges, knowledge of patient current condition, hospital course, and medical plan of care. Services: Services provided to patient in accordance with Admission requirements found in Title 42 Section 412.3 of the Code of Federal Regulations Patient History Date of Service: 01/29/20 Reason for admission: ABDOMEN PAIN, NAUSEA, CHILLS, WEAKNESS, NUMB L SIDE OF BODY History of Present Illness: MS. DANIELLE IS PATIENT WITH MANY MEDICAL ISSUES, DM, HTN, HISTORY OF CVA, A FIB, PVD WITH STENTS. CAD WITH STENTS, DIVERTICULOSIS, COMES WITH ABDOMEN PAIN, LOWER R SIDE, CHILLS, NAUSEA, UNSTEADY GAIT AND NUMBNESS OF L SIDE OF BODY FOR A DAY. SHE CALLED AND I ASKED HER TO ER SHE SEEMED VERY ILL TO BE IN ER WITH POSSIBLE ABDOMEN INFECTION, CVA AND HAD TO BE SCREENED FOR COVID. Allergies amlodipine besylate [From Norvasc] Allergy (Intermediate, Verified 12/18/12 20:18) cough azithromycin Allergy (Intermediate, Verified 12/18/12 20:17) Hives/Rash clonidine Allergy (Intermediate, Verified 12/18/12 20:17) Shortness of breath hydrochlorothiazide Allergy (Intermediate, Verified 12/18/12 20:17) Shortness of breath metoprolol succinate [From Toprol XL] Allergy (Intermediate, Verified 12/18/12 20:17) Nausea/Vomiting tetracycline [Tetracycline] Allergy (Intermediate, Verified 12/18/12 20:16) swelling Tetracyclines Allergy (Verified 01/28/20 21:40) Unknown Home Medications: Furosemide [Lasix*] 20 mg PO DAILY 12/18/12 Glimepiride 4 mg PO BID 12/18/12 Isosorbide Keith [Imdur*] 60 mg PO DAILY 12/18/12 Levothyroxine [Synthroid*] 50 mcg PO [id number] 12/18/12 Losartan Potassium [Cozaar] 100 mg PO DAILY 12/18/12 Potassium Chloride [K-Dur] 20 meq PO DAILY 12/18/12 Rosuvastatin [Crestor*] 20 mg PO BEDTIME 12/18/12 atenoloL [Tenormin*] 50 mg PO DAILY 12/18/12 Apixaban [Eliquis] 5 mg PO ONCE 01/29/20 Clopidogrel Bisulfate [Clopidogrel] 75 mg PO ONCE 01/29/20 Duloxetine HCl 30 mg PO DAILY 01/29/20 Empagliflozin [Jardiance] 25 mg PO DAILY 01/29/20 - Past Medical/Surgical History Diabetic: Yes -: Sleep Apnea -: Reflux -: CAd, CHF, DM -: TIA -: Atrial Fib -: htn -: depression -: hypothyroidism -: 4 heart stents -: hysterectomy -: appendectomy -: pacemaker - Social History Smoking Status: Never smoker Alcohol use: No CD- Drugs: No Caffeine use: Yes Review of Systems 10-point ROS is otherwise unremarkable General: Weakness, Malaise Gastrointestinal: Abdominal Pain, Distention, As per HPI Physical Examination - Vital Signs Temperature: 97.8 F Blood Pressure: 117/50 Pulse: 60 Respirations: 20 Pulse Ox (%): 98 - Physical Exam General: Alert, Moderate distress, Other HEENT: Atraumatic, PERRLA, Mucous membr. moist/pink, EOMI, Sclerae nonicteric Neck: Supple, 2+ carotid pulse no bruit, No LAD, Without JVD or thyroid abnormality Respiratory: Clear to auscultation bilaterally, Normal air movement Cardiovascular: Regular rate/rhythm, Normal S1 S2 Gastrointestinal: Absent bowel sounds, Tenderness (RLQ MODERATE WITH REBOUND.) Musculoskeletal: No tenderness Integumentary: No rashes Neurological: Normal gait, Normal speech, Normal strength at 5/5 x4 extr, Normal tone, Normal affect Lymphatics: No axilla or inguinal lymphadenopathy - Studies Laboratory Data (last 24 hrs) 01/28/20 18:30: WBC 14.7 H, Hgb 11.5 L, Hct 34.7 L, Plt Count 210 01/28/20 18:30: Sodium 136, Potassium 4.8, BUN 44 H, Creatinine 2.11 H, Glucose 181 H, Total Bilirubin 1.4 H, AST 16, ALT 19, Alkaline Phosphatase 72, Lipase 73 Assessment and Plan - Problems (Diagnosis) (1) Diverticulitis of colon with perforation Current Visit: Yes Status: Acute Plan: MS DANIELLE COMES WITH ACUTE DIVERTICULAR PEFORATION THAT IS MICRO-PERFORATION. SHE IS CLINICALLY BETTER, WE ARE ABLE TO TAPER OFF LEVOPHED. SHE NEEDED TWO BOLUSES AND LEVOPHED TO IMPROVE BP. SHE WAS GIVEN CIPRO AND FLAGYL FOR DIVERTICULTIS. Qualifiers: Diverticulitis bleeding: without bleeding Qualified Code(s): K57.20 - Diverticulitis of large intestine with perforation and abscess without bleeding (2) Diabetic peripheral vascular disease Current Visit: Yes Status: Chronic (3) Diabetes mellitus with cardiac complication Current Visit: Yes Status: Chronic Plan: CAD AND STENTS IN PAST. (4) A-fib Current Visit: Yes Status: Chronic Plan: CONTINUE MEDS. HAS PPM MAY HAVE TO HOLD ELIQUIS IF SURGERY NEEDS TO BE DONE. SHE IS AT HIGH RISK OF STOPPING ELIQUIS SO I WILL CONTINUE SHE ONLY HAS MICROPERFORATION. THIS MAY CHANGE DAYS GO BY. Qualifiers: Atrial fibrillation type: longstanding persistent Qualified Code(s): I48.11 - Longstanding persistent atrial fibrillation (5) Acute renal insufficiency Current Visit: Yes Status: Acute Plan: CREATININE ELEVATION IS NEW. IT IS FROM HYPOTENSION AND MOST LIKELY WILL RECOVER. (6) Dehydration Current Visit: Yes Status: Acute (7) Hypotension Current Visit: Yes Status: Acute Plan: FROM SEPTIC SHOCK ABOVE. Qualifiers: Hypotension type: other hypotension type Qualified Code(s): I95.89 - Other hypotension (8) Septic shock Current Visit: Yes Status: Acute Plan: SHOULD IMPROVE. MEDS STARTED ON ADMISSION. (9) CVA (cerebral vascular accident) Current Visit: Yes Status: Acute Plan: WE CAN'T DO MRI TO DEFINE THIS SHE HAS PPM. SHE IS ALREADY ON ELIQUIS THAT IS THE BEST THERAPY FOR A FIB RELATED PREVENTION OF STROKE. DISCUSSED ALL WITH DAUGHTER AND PATIENT IN DETAIL. Qualifiers: CVA mechanism: thrombosis - Advance Directives Does patient have a Living Will: No Does patient have a Durable POA for Healthcare: No
--- NOTE | 2020-01-29 14:17 | P.PN ---
Date of Service: 01/29/20 S: Patient has no specific complaints today. Says her abdomen is still sore. Has been to the restroom. Much better than she was yesterday evening. O: Vital signs are stable, is currently off of the Levophed for pressure support. White cell count was elevated this a.m., BUN and creatinine slightly elevated as well today. Has been making good urine. Abdominal exam shows much improved since yesterday evening but still has tenderness in the left lower quadrant. CT scan is reviewed with radiologist. Seems to be localized air collection. No free fluid, intraperitoneal, or sub diaphragmatic air noted. A: Patient is surgically stable. P: Continue current therapy. Will start patient on clear liquids. She may be kept on her Eliquis as I am optimistic she will most likely not require surgery at this time.
[2020-01-29] MEDS ORDERED: NACHLORIDE 0.45% 1,000 ML IV ONE (16:47)
[2020-01-29] MEDS ORDERED: GLIMEPIRIDE 2 MG TABLET PO SCH (17:00)
[2020-01-29] MEDS: NACHLORIDE 0.45% 1,000 ML IV SCH (17:07)
[2020-01-29] MEDS ORDERED: CIPROFLOXACIN 400mg IV 0 MG/0 ML BAG IV ONE (20:38)
[2020-01-29] MEDS ORDERED: APIXABAN 2.5 MG TABLET ONE (20:52)
[2020-01-29] MEDS ORDERED: ROSUVASTATIN 10 MG TAB ONE (20:54)
[2020-01-29] MEDS: ROSUVASTATIN 10 MG TAB PO SCH (20:57)
[2020-01-30] MEDS: METRONIDAZOLE 500mg IVPB 500 MG/100 ML BAG IV SCH ×2 (00:03→10:00)
[2020-01-30] MEDS: NACHLORIDE 0.45% 1,000 ML IV SCH ×2 (01:52→04:51)
[2020-01-30] MEDS ORDERED: NA CHLORIDE 0.9% 0 ML ONE (02:21)
[2020-01-30] MEDS ORDERED: NACHLORIDE 0.45% 1,000 ML IV ONE (04:54)
[2020-01-30] MEDS: LEVOTHYROXINE SOD 0.05 MG TABLET PO SCH (05:35)
[2020-01-30 05:49] LABS: Absolute Lymphocytes (CBC) 0.7 K/uL (0.7-4.9); Basophils % 0.2 % (0-1.3); Hematocrit 30.8 % (36.0-45.0); Lymphocytes % 5.5 % (15.3-44.8); MPV 8.4 fL (7.6-11.3)
[2020-01-30 05:57] LABS: Albumin 2.2 g/dL (3.4-5.0); Bilirubin Total 0.7 mg/dL (0.2-1.0); Potassium 4.5 mmol/L (3.5-5.1); Protein, Total 5.6 g/dL (6.4-8.2)
[2020-01-30] MEDS: INSULIN -REGULAR HUMAN 50 UNIT/0.5 ML ML SQ SCH ×3 (07:30→16:30)
[2020-01-30] MEDS: CLOPIDOGREL 75 MG TABLET PO SCH (08:27)
[2020-01-30] MEDS: HOME MED 1 EA UNK (Empagliflozin [Jardiance] 25 MG) PO SCH (09:00)
[2020-01-30] MEDS: DULOXETINE 30 MG CAP PO SCH (09:00)
[2020-01-30] MEDS: atenoloL 50 MG TAB PO SCH (09:00)
[2020-01-30] MEDS: ISOSORBIDE MONO SR 60 MG TAB PO SCH (09:00)
[2020-01-30] MEDS ORDERED: METRONIDAZOLE 500mg IVPB 500 MG/100 ML BAG IV ONE (09:18)
[2020-01-30] MEDS ORDERED: CLOPIDOGREL 75 MG TABLET ONE (09:18)
[2020-01-30] MEDS ORDERED: Ciprofloxacin 200mg IV 200 MG/100 ML IV.SOLN. IV ONE (09:18)
--- NOTE | 2020-01-30 09:53 | RAD REPORT ---
EXAM DESCRIPTION: CT - Abdomen Pelvis Wo Contrast - 01/30/2020 9:28 am CLINICAL HISTORY: follow up diverticulitis, abdominal pain COMPARISON: Abdomen Pelvis Wo Contrast dated 01/28/2020 TECHNIQUE: Axial [address] imaging of the abdomen and pelvis was performed without IV contrast. No IV contrast was given because of allergy, abnormal renal function, patient refusal or physician re quest. No oral contrast administered. All CT scans are performed using dose optimization technique as appropriate and may include automated exposure control or mA/KV adjustment according to patient size. FINDINGS: Small bilateral pleural effusions have developed. There is bilateral lower lobe and right middle lobe atelectasis. Interstitial pattern overall is increased. No cardiomegaly or pericardial ef fusion. Subtle increase in the congestion or edema of the subcutaneous fatty tissues noted. Patient c an be evaluated or monitored for developing volume overload. The liver, spleen and pancreas show no suspicious findings on non-contrast imaging. Gallbladder is di lated increased slightly from the rior study. No biliary tree dilatation. Duct stones and gallstones can be occult on CT imaging. No hydronephrosis or suspicious renal mass. No significant adrenal finding. Isodense renal masses an d pyelonephritis cannot be excluded in the absence of IV contrast. Urinary bladder is mostly contract ed. No gastric dilatation gastric wall thickening. Minimal hiatal hernia present. Small bowel loops are n ot dilated. There are several fluid-filled small bowel loops along the pelvic floor that show mild th ickening of the addison. Small bowel loops abut the area of pronounced sigmoid diverticulitis. A 7 june timeter fluid collection has developed in the cul de sac. A J-shaped air in fluid collection has deve loped in the midline and right side pelvis this is 4-5 cm in maximum diameter and demonstrates an air -fluid level. A few scattered foci of extraluminal free air present adjacent to the sigmoid colon. Tr renata amount of free air is seen in the anterior mid abdomen just deep to the abdominal wall. Prominent edematous/ inflammatory stranding is seen surrounding the involved sigmoid colon. No soft tissue mass or bulky lymphadenopathy. Fat extends into each inguinal canal. Prominent disc and bony degenerative changes are present. Findings telephoned to the referring physician 9:49 a.m.. IMPRESSION: Worsening of the prominent diverticulitis pattern. Patient has not developed a [address] fluid collection in the cul de sac along with a J-shaped extraluminal air -fluid collection in th e right-side in mid pelvis. Both of these new collections have the appearance of developing abscesses. Neither is amenable to per cutaneous drainage due to the deep central pelvic location and surrounding bowel. Small extraforaminal free air collections are seen adjacent to the involved sigmoid colon. There are few small foci of extraluminal free air in the anterior mid abdomen distant from the sigmoid colon. Bilateral pleural effusions, increased lung base interstitial thickening and increased subcutaneous f luid retention suggesting volume overload or cardiac decompensation. Gallbladder is dilated, increased slightly from January 27 imaging. No biliary tree dilatation. Duct st ones and gallstones can be occult.
[2020-01-30] MEDS: Ciprofloxacin 200mg IV 200 MG/100 ML IV.SOLN. IV SCH (10:00)
[2020-01-30] MEDS ORDERED: FUROSEMIDE 20 MG/ 2ML VIAL IV ONE (10:01)
--- NOTE | 2020-01-30 10:13 | RAD REPORT ---
EXAM DESCRIPTION: Head Brain Wo Cont CLINICAL HISTORY: 64 years Female drowsiness all day COMPARISON: None TECHNIQUE: Contiguous axial images of the brain were obtained without the administration of intraven ous contrast.This exam was performed according to our departmental dose-optimization program which in cludes use of Automated Exposure Control, adjustment of the mA and/or kV according to patient size an d/or use of iterative reconstruction technique. DLP: 842 mGy*cm FINDINGS: Brain: No acute intracranial hemorrhage. No extra-axial collection. No mass effect or herniation. Con fluent periventricular and subcortical white matter hypodensity is noted. Ventricles: Mild prominence of ventricular system without hydrocephalus. Globes and orbits: No acute abnormality. Bones: No acute osseous finding Paranasal sinuses: Paranasal sinuses are clear. Mastoid air cells: Well pneumatized. Soft tissues: Within normal limits IMPRESSION: No acute intracranial abnormality. Mild chronic small vessel ischemic changes. Consider MRI if clinically indicated. Electronically signed by: Lyle Pham DO 01/29/2020 12:15 AM CDT Due to temporary technical issues with the PACS/Fluency reporting system, reports are being signed by the in house radiologist without review as a courtesy to ensure prompt reporting. The interpreting r adiologist is fully responsible for the content of the report
--- NOTE | 2020-01-30 13:14 | P.PN ---
Date of Service: 01/30/20 Radiology Progress Note: S: Patient is said there pain has change in quality since last night. Now causing more tenderness in the lower portion of her abdomen. O: Patient has increasing guarding and rebound in the left lower quadrant of the abdomen today. A CT scan shows increase in amount of free fluid in the pelvis and more intraperitoneal air. A: Failed conservative management P: I will take him to the operating room for exploratory laparotomy with bowel resection and colostomy. The risks of this procedure have been discussed in detail with the patient and her family. The possibility of bleeding, infection, injury to surrounding structures was explained. The possible need for further s urgeries and procedures was discussed. stroke like a blood flow to intestines were all explained. They understand and want us to proceed.
[2020-01-30] MEDS ORDERED: Ringers Lactate 0 ML IV ONE (13:46)
[2020-01-30] MEDS ORDERED: NA CHLORIDE 0.9% 1,000 ML ONE (13:46)
[2020-01-30] MEDS: D5 0.45 NS 1,000 ML IV SCH (14:00)
[2020-01-30] MEDS ORDERED: SUCCINYLCHOLINE 20 MG/ML (10 ML) IV ONE (14:08)
[2020-01-30] MEDS ORDERED: propofoL 200 MG/20 ML VIAL IV ONE (14:09)
[2020-01-30] MEDS ORDERED: ROCURONIUM 50 MG/5 ML VIAL IV ONE (14:10)
[2020-01-30] MEDS ORDERED: FENTANYL CITR 100 MCG/2 ML ONE ×2 (14:10→16:56)
[2020-01-30] MEDS ORDERED: Ringers Lactate 1,000 ML IV ONE (15:30)
[2020-01-30] MEDS ORDERED: NEOSTIGMINE 1 MG/ML -5 ML ONE (16:07)
[2020-01-30] MEDS ORDERED: GLYCOPYRROLATE 0.2 MG/ML SYR ONE (16:07)
--- NOTE | 2020-01-30 16:24 | P.PN ---
Subjective Date of Service: 01/30/20 Chief Complaint: LAST NIGHT PAIN GOT WORSE Subjective: Worsening MS. DANIELLE FELT GOOD YESTERDAY BUT GOT WORSE LAST NIGHT. SHE HAS MORE PAIN SINCE LAST NIGHT. Review of Systems 10-point ROS is otherwise unremarkable General: As per HPI Physical Examination - Vital Signs Temperature: 98.6 F Blood Pressure: 126/49 Pulse: 64 Respirations: 24 Pulse Ox (%): 98 - Physical Exam General: Alert, Moderate distress HEENT: Atraumatic, PERRLA, EOMI Neck: Supple, JVD not distended Respiratory: Clear to auscultation bilaterally, Normal air movement Cardiovascular: Regular rate/rhythm, Normal S1 S2 Gastrointestinal: Absent bowel sounds, Distended, Tenderness (DIFFUSE LOWER ABDOMEN. REBOUND POS.) Musculoskeletal: No tenderness Integumentary: No rashes Neurological: Normal speech, Normal tone, Normal affect Lymphatics: No axilla or inguinal lymphadenopathy - Studies Medications List Reviewed: Yes Assessment And Plan - Current Problems (Diagnosis) (1) Diverticulitis of colon with perforation Current Visit: Yes Status: Acute Plan: MS DANIELLE COMES WITH ACUTE DIVERTICULAR PEFORATION THAT IS MICRO-PERFORATION. SHE IS CLINICALLY BETTER, WE ARE ABLE TO TAPER OFF LEVOPHED. SHE NEEDED TWO BOLUSES AND LEVOPHED TO IMPROVE BP. SHE WAS GIVEN CIPRO AND FLAGYL FOR DIVERTICULTIS. SHE FAILED CONSERVATIVE THERAPY. I ORDERED STAT ABDOMEN CT SCAN. CONFIRMED WHAT I FELT TODAY. SHE HAS 7 CM FLUID COLLECTION- ABSCESS IN ABDOMNEN. I CALLED DR. SOMMER TO PREPARE. I CALLED DAUGHTER TO LET HER KNOW THAT SHE WILL NEED SURGERY. THE RISK IS HIGH FROM HER OVERALL POOR GENERAL CONDITION WITH DM. CAD, CVA HISTORY AND AGE. THEY UNDERSTOOD AND ACCEPTED THE RISK. CHANGED ABX TO MERREM SHE HAS MORE COMPLICATIONS [facility] WBC COUNT IS DOWN FROM 21K TO 12K. Qualifiers: Diverticulitis bleeding: without bleeding Qualified Code(s): K57.20 - Diverticulitis of large intestine with perforation and abscess without bleeding (2) Diabetic peripheral vascular disease Current Visit: Yes Status: Chronic (3) Diabetes mellitus with cardiac complication Current Visit: Yes Status: Chronic Plan: CAD AND STENTS IN PAST. (4) A-fib Current Visit: Yes Status: Chronic Plan: CONTINUE MEDS. HAS PPM MAY HAVE TO HOLD ELIQUIS IF SURGERY NEEDS TO BE DONE. SHE IS AT HIGH RISK OF STOPPING ELIQUIS SO I WILL CONTINUE SHE ONLY HAS MICROPERFORATION. THIS MAY CHANGE DAYS GO BY. Qualifiers: Atrial fibrillation type: longstanding persistent Qualified Code(s): I48.11 - Longstanding persistent atrial fibrillation (5) Acute renal insufficiency Current Visit: Yes Status: Acute Plan: CREATININE ELEVATION IS NEW. IT IS FROM HYPOTENSION AND MOST LIKELY WILL RECOVER. CREAT IS THE SAME. CONSULT NEPHROLOGY. I MANAGED THE DOSE OF ANTIBIOTIC. (6) Dehydration Current Visit: Yes Status: Acute (7) Hypotension Current Visit: Yes Status: Acute Plan: FROM SEPTIC SHOCK ABOVE. Qualifiers: Hypotension type: other hypotension type Qualified Code(s): I95.89 - Other hypotension (8) Septic shock Current Visit: Yes Status: Acute Plan: SHOULD IMPROVE. MEDS STARTED ON ADMISSION. (9) CVA (cerebral vascular accident) Current Visit: Yes Status: Acute Plan: WE CAN'T DO MRI TO DEFINE THIS SHE HAS PPM. SHE IS ALREADY ON ELIQUIS THAT IS THE BEST THERAPY FOR A FIB RELATED PREVENTION OF STROKE. DISCUSSED ALL WITH DAUGHTER AND PATIENT IN DETAIL. Qualifiers: CVA mechanism: thrombosis (10) Fluid overload Current Visit: Yes Status: Acute Plan: ON CT SCAN DR. WILLINGHAM REPORTED. SHE HAS MILD TACHYCARDIA ALSO. SALINE LOCK AND ONE DOSE OF LASIX 20 MG IV.
--- NOTE | 2020-01-30 16:25 | P.OP ---
Preoperative diagnosis: Perforated acute diverticulitis Postoperative diagnosis: The same with pelvic abscess Primary procedure: Sigmoid resection Secondary procedure: Colostomy Other procedure(s): Drainage of pelvic abscess Anesthesia: General Estimated blood loss: Less than 50 cc Specimen: Sent for histopathology Operative Technique: The patient brought to the operating room and placed supine on the table the induction of adequate general endotracheal anesthesia, and the insertion of a Julio catheter, the patient was painted with a DuraPrep solution and draped in usual aseptic manner. A generous midline incision was made. This was brought down through the skin and subcutaneous tissue. The fascia was opened for the full length of our incision. An opening was made into the peritoneal cavity at the level of the emboli kiss. We were now able to open the peritoneum as well. We could see the omentum was on top of the bowel. It was adherent down into the pelvis. There were marked inflammatory changes at the pelvic brim anteriorly. These were gently taken down using blunt and sharp dissection as well as electro cautery. The omentum having been freed we could see on the right side of the sigmoid colon in the true pelvis a collection of purulent material. This was aspirated using the suction device. The bowel was noted be markedly inflamed in this area with a considerable amount of thickening. The sigmoid colon was now mobilized. At its junction with the descending colon. We opened the peritoneum at the white line of Toldt. This infant born was swept medially. The sigmoid was divided. This was done using the KAROL. The mesentery now of the sigmoid colon was taken down staying away from the sacrum using the ligature. We were finally able to get below this inflammatory portion of the bowel. The bowel was mobilized all around at this point. Using the semi circular Stapler, it was placed into the pelvis around the bowel. The instrument was then fired. This portion of the sigmoid colon was now sent for histopathology. The true pelvis was inspected to ensure adequate hemostasis. A Maxwell-Griggs drain was placed down into the true pelvis and brought out in the right lower quadrant. The omentum was now reflected superiorly. We were able to run the small bowel from the ligament of Treitz down to the ileocecal valve. We could see the distal portion of the ileum was involved with some inflammatory process and there was some exudate of material on the serosal surface. The pelvis was now irrigated with a copious amount of saline solution. The small bowel was returned to its anatomical position and attention was turned towards the distal portion of the descending colon. The white line of Toldt was extended superiorly we had adequate length to bring the bowel up to the anterior abdominal wall at this point, an opening was made into the abdominal wall by removing a circular piece of skin and subcutaneous tissue. A across incision was made in the fascia of the rectus muscle. The peritoneum posteriorly was then opened and the bowel brought out through this opening. We had adequate length and there was no evidence of any tension on the vasculature. At this point attention was turned back towards our midline incision. The intestines were returned to the peritoneal cavity. The position the nasogastric tube was confirmed. The midline was closed with a running suture of 2 looped nylon. The skin was then approximated with giuseppe and the staple line covered with DuraBond. Attention was now turned towards the intestine protruding through the abdominal wall. The pursestring device was placed over this. A 2 0 nylon that was used to pursestring the skin. A 29 anvil was now placed into the bowel and the pursestring suture was tightened around the bowel. This was then buried in the subcutaneous tissue. The suture on the skin was attention up to allow us to bring down the EEA and the anvil was inserted. The instrument was then from fired securing the bowel to the skin of the anterior abdominal wall. The colostomy bag was then put in place, the Amxwell-Griggs drain was sutured, and at the end of the procedure she was in a stable condition when sent to the recovery room. Needle sponge instrument count were correct. 1 drain in the pelvis. Complications: None Drain(s): Nasogastric, TAMMIE drain Transferred to: Recovery Room Condition: Good
[2020-01-30] MEDS ORDERED: Meropenem 500 MG VIAL IV SCH (17:00)
--- NOTE | 2020-01-30 17:24 | CON ---
Date of Consultation: 01/30/2020 Additional Consulting Physician: Dr. Dyson. Reason For Consultation: Elevated BUN and creatinine, fluid management. History Of Present Illness: This is a pleasant 89-year-old female with significant past medical hist ory of diabetes since 1979 complicated with neuropathy, no retinopathy, hypertension, CVA without res idual, atrial fibrillation, coronary artery disease without any congestive heart failure status post PTCA x7, PAD status post stenting, the patient came to the hospital with abdominal pain, nausea witho ut any vomiting, decreased urine output found to have diverticulitis with perforated sigmoid. The pa ronnell declined for surgery. Primary workup show elevated BUN and creatinine, and hyperkalemia. For that reason, we have been consulted. The patient denied changing her medication. The patient denied taking a nonsteroidal. No IV contrast. The patient yesterday had low blood pressure, required Levo phed. Today, blood pressure is maintained. The patient is still making good urine output post dark urine. Reviewing the record, the patient has been on losartan and Lasix with Eliquis and gemfibrozil . Past Medical History: Includes: 1.Hypertension. 2.Diabetes complicated with neuropathy since 1979. 3.Hyperlipidemia. 4.CVA, no residual. 5.Atrial fibrillation. 6.Coronary artery disease status post PTCA x7. 7.PAD status post stenting. 8.Difficulty hearing. Allergies: AMLODIPINE, AZITHROMYCIN, CLONIDINE, HYDROCHLOROTHIAZIDE, METOPROLOL, TETRACYCLINE. Home Medications: Include Lasix, gemfibrozil, isosorbide, levothyroxine, losartan, KCl, atenolol, El iquis, Plavix, Jardiance. Social History: Denies smoking. Denies drugs abuse. Denies alcohol. Review of Systems: Head and Neck: No red eye, no ear pain. Has decreased hearing. GI: Has abdominal pain, has nausea. No vomiting. : Has dark urine, decreased urine output. Head Of Precision Targeting: No vaginal discharge. Respiratory: No shortness of breath. Cardiovascular: No chest pain. Endocrine: No polydipsia. Skin: No rash. Neuro: Has neuropathy. Musculoskeletal: No joint pain. Physical Examination: General: When I saw the patient, the patient is lying in bed. Vital Signs: Blood pressure of 110/45, pulse of 60, afebrile. Chest: Clear to auscultation. Heart: S1, S2. Systolic murmur. Abdomen: Tenderness with guarding. Extremities: No edema. Neurological: Alert, oriented x3. No focal. Laboratory Data: Upon presentation, sodium 134, potassium 5.2, bicarb 22, BUN 51, creatinine 2.4, ca lcium 8.3. LFT within normal limit. WBC 12.1, H and H 10.2/30.8, platelet 181. Latest lab data; so dium 135, potassium 4.5, bicarb 21, BUN 56, creatinine 2.4, GFR of 18, calcium 7.5, magnesium 2. CT is showing no hydro, left renal calculi. Current Medication: Cipro 200, Flagyl 500 t.i.d., isosorbide, atenolol, rosuvastatin. Assessment And Plan: 1.Acute kidney injury secondary to poor perfusion, acute tubular necrosis, low blood pressure, sligh tly on the dry side. I am going to discontinue Lasix, discontinue blood pressure medication especial ly Lasix and ARB and we will start the patient on gentle hydration and we will monitor obstructive ur opathy, has been ruled out. I am going to go ahead and send for CK and we will follow up. 2.Hyponatremia secondary to depletional. Start IV hydration. 3.Hypertension, currently hypotension. Hold all blood pressure medications. 4.Coronary artery disease with congestive heart failure. Hold diuresis given the acute kidney injur y. Hold losartan. Start gentle hydration. We will monitor the patient. 5.Perforated bowel. The patient was started on antibiotic, dose appropriate. We will follow up wit h the Primary and Surgery. 6.Hyperkalemia secondary to supplement and ARB, renal failure, recovered, resolved. KAI/DEISY Voice ID: [id number] Report ID: [id number]
[2020-01-30] MEDS: Meropenem 500 MG in NA CHLORIDE 0.9% 100 ML IV SCH (18:00)
[2020-01-30 18:51] LABS: Hematocrit 34.3 % (36.0-45.0); MPV 8.5 fL (7.6-11.3); RBC Red Blood Cell Count 3.76 M/uL (3.86-4.86)
[2020-01-30 19:07] LABS: Albumin 2.1 g/dL (3.4-5.0); Bilirubin Total 0.8 mg/dL (0.2-1.0); Potassium 4.2 mmol/L (3.5-5.1); Protein, Total 5.6 g/dL (6.4-8.2)
[2020-01-30] MEDS: ROSUVASTATIN 10 MG TAB PO SCH (20:00)
[2020-01-30] MEDS ORDERED: HYDROMORPHONE HCL 1 MG/ML INJ ONE (21:14)
[2020-01-31] MEDS ORDERED: D5 0.45 NS 1,000 ML IV ONE (02:29)
[2020-01-31] MEDS: LEVOTHYROXINE SOD 0.05 MG TABLET PO SCH (04:58)
[2020-01-31] MEDS: Meropenem 500 MG in NA CHLORIDE 0.9% 100 ML IV SCH ×2 (05:00→17:15)
[2020-01-31] MEDS: D5 0.45 NS 1,000 ML IV SCH (05:01)
[2020-01-31] MEDS: INSULIN -REGULAR HUMAN 50 UNIT/0.5 ML ML SQ SCH ×4 (05:20→18:22)
[2020-01-31 05:34] LABS: Albumin 1.9 g/dL (3.4-5.0); Magnesium 2.1 mg/dL (1.8-2.4); Phosphorus 5.1 mg/dL (2.5-4.9); Potassium 4.7 mmol/L (3.5-5.1)
[2020-01-31] MEDS ORDERED: INSULIN -REGULAR HUMAN 50 UNIT/0.5 ML ML ONE ×3 (05:35→18:28)
[2020-01-31 06:22] LABS: Urine Protein/Creatinine Ratio 0.45 ratio (<0.15)
--- NOTE | 2020-01-31 07:50 | EKG ---
Test Date: 2020-01-30 Test Time: 10:32:40 Mangle Operator Garments: YUN MEASUREMENT RESULTS: Intervals: Rate: 67 FL: QRSD: 84 QT: 402 QTc: 424 [place]: P: FL: QRS: 51 T: -51 INTERPRETIVE STATEMENTS: Atrial fibrillation with premature ventricular or aberrantly conducted complexes ST & T wave abnormality, consider inferior ischemia or digitalis effect ST & T wave abnormality, consider anterolateral ischemia or digitalis effect Abnormal ECG Compared to ECG 03/07/2014 07:19:30 Ventricular premature complex(es) now present ST (T wave) deviation now present Possible ischemia now present Ventricular-paced complex(es) or rhythm no longer present Electronically Signed On 01-31-20 07:49:08 CDT by Howard Quinones
[2020-01-31] MEDS: HOME MED 1 EA UNK (Empagliflozin [Jardiance] 25 MG) PO SCH (08:44)
[2020-01-31] MEDS: DULOXETINE 30 MG CAP PO SCH (08:45)
[2020-01-31] MEDS ORDERED: MINERAL OIL 30 ML UCUP PO ONE (10:00)
[2020-01-31 10:26] LABS: Absolute Lymphocytes (CBC) 0.7 K/uL (0.7-4.9); Basophils % 0.2 % (0-1.3); MPV 8.3 fL (7.6-11.3); RBC Red Blood Cell Count 3.54 M/uL (3.86-4.86)
[2020-01-31] MEDS ORDERED: ENOXAPARIN 30 MG/0.3 ML SQ ONE ×2 (10:30→11:46)
[2020-01-31 10:40] LABS: Potassium 4.4 mmol/L (3.5-5.1)
--- NOTE | 2020-01-31 12:10 | CON ---
Date of Consultation: 01/30/2020 Reason For Consultation: Cardiac clearance for emergency colorectal surgery for a perforated bowel. History Of Present Illness: Ms. Ernst is 89. She is a patient of Dr. Dyson, has multiple complicate d past medical history including coronary artery disease status post stenting, peripheral arterial di sease, status post stenting, has had a CVA that has no residual, has a history of atrial fibrillation , dyslipidemia, diabetes, and hypertension. Came in with abdominal pain, was found to have a perfora pieter bowel. From a cardiac standpoint, she has not had any cardiac symptoms previous to her admission . She denies chest pain. Came in with mostly abdominal pain, nausea, diaphoresis. Denied shortness of breath, palpitations, or syncope. Past Medical History: As stated above. Allergies: INCLUDE METOPROLOL NORVASC, HYDROCHLOROTHIAZIDE, CLONIDINE, ERYTHROMYCIN, AND TETRACYCLIN E. Medications: At home include atenolol, Imdur, losartan, Plavix. Eliquis, Jardiance, Crestor, Lasix, and glimepiride. Review of Systems: Hard to obtain because she was sedated from pain medications. Social History: Hard to obtain because she was sedated from pain medications. Family History: Hard to obtain because she was sedated from pain medications. Physical Examination: Vital Signs: Her vital signs initially were stable. She was afebrile. HEENT: Negative. Neck: Supple. No bruit. Chest: Clear. Cardiac: Revealed a regular rhythm and rate without any murmurs, gallops, or rubs. Abdomen: Tender, rigid. No bowel sounds. Extremities: Revealed no clubbing, cyanosis, or edema. Diagnostic Data: Her diagnostic data of significance was a creatinine of 2.08. Her EKG was unremark able. Chest x-ray was unremarkable. Impression And Plan: 1.The patient with acute abdomen, needs emergency surgery. Eliquis has been held. Plavix has been held. No cardiac symptoms. No clinical evidence of congestive heart failure or coronary artery dise ase by examination. I think she is at moderate risk for perioperative mortality based on her age and her creatinine and her multiple risk factors, but it is an emergent surgery and that needs to be don e. We will observe her postoperatively. Continue her present regimen otherwise. 2.Hypertension, well controlled. 3.Diabetes, well controlled. 4.Dyslipidemia, well controlled. 5.Paroxysmal atrial fibrillation, on Eliquis and Plavix, which is held. She has also has a history of cerebrovascular accident, coronary artery disease, and peripheral artery disease status post stent ing in the coronaries in the legs. All of these are stable at this point. We will continue her pres ent regimen and will continue to follow her postoperatively. She is presently on antibiotics, Lasix, Crestor, insulin, and Synthroid. Her Plavix and Eliquis have been held. Nephrology is following fo r her acute tubular necrosis. OBDULIA/MODL Voice ID: [id number] Report ID: [id number]
--- NOTE | 2020-01-31 13:16 | PN ---
Date of Progress Note: 01/31/2020 Subjective: Ms. Ernst is an 89-year-old, came in on 01/28/2020 with a perforated bowel. She was see n yesterday for cardiac clearance because of her multiple cardiac risk factors including CAD, PAD, st atus post stenting, history of CVA, AFib, dyslipidemia, diabetes, and hypertension. Her Eliquis and Plavix were held. Today, she is feeling fairly well. She is still slightly confused, but she is allyssa ented to name. She is not on any pressors. She had a sigmoid resection, pelvic abscess drainage, an d a colostomy by Dr. Almodovar that went successfully. Objective: Vital Signs: Stable. She is afebrile. She is hemodynamically non-compromised. Chest: Clear. Abdomen: Shows no bowel sounds, but it is not rigid. Extremities: Showed no edema. Heart: She is in sinus rhythm. Impression: As the patient to have hypertension, diabetes, dyslipidemia, atrial fibrillation that is paroxysmal, off Eliquis and off Plavix for now. She can get back on these whenever it is okay with Dr. Almodovar and Dr. Dyson. She has had a cerebrovascular accident with no residual, coronary artery disease, percutaneous coronary intervention, peripheral artery disease, status post stenting in the p ast. She has acute tubular necrosis that Nephrology is following. Plan: Is to continue her present regimen. She has done well cardiac tristan. I will continue to follo w her. OBDULIA/DEISY Voice ID: [id number] Report ID: [id number]
[2020-01-31] MEDS: HYDRALAZINE HCL 20 MG/ML VIAL IV PRN (14:23)
[2020-01-31] MEDS ORDERED: HYDRALAZINE HCL 20 MG/ML VIAL ONE (14:33)
--- NOTE | 2020-01-31 15:46 | PN ---
Subjective: Ms. Ernst is an 89 years old lady with past medical history of multiple medical issues, diabetes with PVD, diabetes with coronary artery disease and stents, chronic renal insufficiency, whi ch was mild in the past, now is exacerbated. She also has hypertension, atrial fibrillation, pacemak er placement. She comes in with diverticular rupture and develops a large abscess in the region of s igmoid colon. I had to go for urgent surgery yesterday by Dr. Almodovar. I cleaned up the area. She has a colostomy now after partial colectomy. Currently, she is stable in ICU bed. Objective: Vital signs: Stable. General: Still stays very disoriented, was not able to recognize me by name today. She did recogniz e me and my person today. She was able to move all 4 limbs on command at power 2-4/5 with generalize d weakness. Abdomen: Soft, but has tenderness postoperatively. Laboratory Examination: White count down to 10,000 from 21,000, BUN 58, creatinine 2.20, improved. Glucose 236. Assessment And Plan: 1.Diverticular rupture, abscess status post surgery, colostomy needing postoperative recovery now. She will be able to go to a regular floor possibly tomorrow. Continue antibiotics meropenem 500 mg I V piggyback q.12 hours with renal insufficiency. 2.Dietary support by total parenteral nutrition. 3.Diabetes. Sugar will go up with total parenteral nutrition, so I will be increasing the dose of s liding scale to moderate to aggressive. 4.Atrial fibrillation, currently stable. She is at a high risk of pulmonary embolism and thromboemb olism to brain. Currently, we cannot give her any anticoagulation. We will just give her a small do se of Lovenox because she is postoperative and this treatment is not optimal, but the best we can do at this point. 5.Acute on chronic renal failure. Continue IV fluids. She did develop some pulmonary congestion yes terday for which she was given dose of Lasix 20 mg, but it did not really worsen her renal status. S he is back on her gentle IV hydration and her basketball commentator will be following her. Prognosis remains overall guarded. The patient's family has been kept abreast. RVD/MODL Voice ID: [id number] Report ID: [id number]
[2020-01-31] MEDS: MORPHINE 4 MG/ML SYR IV PRN ×2 (16:23→20:22)
[2020-01-31] MEDS: PARICALCITOL 2 MCG/ML VIAL IV SCH (16:26)
[2020-01-31] MEDS ORDERED: MORPHINE 2 MG/ML SYR ONE ×2 (16:30→20:32)
[2020-01-31] MEDS ORDERED: [UNRECOGNIZED DRUG - NUTRITION] IV SCH ×4 (17:00)
[2020-01-31] MEDS ORDERED: AA 5%/D20W/ELECTROLYTES-TPN 2,000 ML, Lipids 20% 250 ML with MULTIVITAMINS INJ 10 ML IV SCH ×3 (17:00)
[2020-01-31] MEDS ORDERED: ENOXAPARIN 30 MG/0.3 ML SQ SCH (17:00)
--- NOTE | 2020-01-31 17:39 | P.PN ---
Date of Service: 01/31/20 S: Patient is postoperative day 1. Patient is somewhat confused today. Has been receiving Dilaudid and morphine. Does not appear to be in any pain. O: Vital signs are stable, adequate urine output, minimal out through nasogastric tube and Maxwell-Griggs drain. Colostomy looks viable. A: Stable status post exploratory laparotomy with sigmoid resection and Ora's pouch P: Will Dc the NG tube in the a.m.. Physical therapy and manager social media assessment tomorrow as well. Stable at the moment.
--- NOTE | 2020-01-31 18:07 | PN ---
Date of Progress Note: 01/31/2020 Subjective: The patient was admitted with diverticulitis, perforated sigmoid. The patient underwent surgery yesterday. The patient is confused today. Physical Examination: Vital Signs: Blood pressure 154/48, pulse of 80, afebrile. Patient had good urine output of 1850. The patient on a positive balance of 450. Chest: Clear to auscultation. Heart: S1, S2. Systolic murmur. Abdomen: Mild tenderness. Extremities: No edema. Neurologic: The patient is sleepy. No focal. Laboratory Data: WBC 10.8, H and H of 10.7 and 32, platelet 200. Sodium 139, potassium 4.4, bicarb 20, BUN 58, creatinine 2.2, GFR of 21, calcium 7.2, phosphorus 5.1, magnesium 2.1. Serum protein frandy ctrophoresis pending. PTH 591. PC ratio 0.4. CT abdomen and pelvis, no obstruction. Current Medications: Include: 1.Meropenem. 2.Lovenox. 3.PPN. 4.Atorvastatin. 5.Levothyroxine. 6.D5 half. Assessment And Plan: 1.Acute kidney injury on chronic kidney disease secondary to prerenal, superimposed with UDAY inhibit or and Lasix. Obstructive uropathy has been ruled out. I am going to continue hydration. When the patient is started on TPN, IV fluid can be discontinued. 2.Secondary hyperparathyroid. Start the patient on Zemplar. 3.Coronary artery disease, congestive heart failure, currently normal volume to the dry side. We wi ll continue hydration. As I mentioned when the patient is started on TPN, we will discontinue IV flu id. Keep holding diuresis for the time being. I am going to request repeated chest x-ray for tomorr ow for better evaluation of the fluid status. 4.Perforated bowel. Follow up with Surgery, status post surgery. Continue current antibiotic. KAI/DEISY Voice ID: [id number] Report ID: [id number]
--- NOTE | 2020-01-31 18:50 | RAD REPORT ---
EXAM DESCRIPTION: RAD - Chest Single View - 01/31/2020 6:27 pm CLINICAL HISTORY: cental line placement Chest pain. COMPARISON: Chest Single View dated 01/29/2020; CHEST SINGLE VIEW dated 03/07/2014; CHEST SINGLE VIEW d ated 03/06/2014; CHEST SINGLE VIEW dated 12/18/2012 FINDINGS: Portable technique limits examination quality. Right-sided central venous catheter has its tip near the junction of the SVC and right atrium. Mild i nterstitial pulmonary opacities are seen bilaterally. The heart is upper limit normal in size with du al lead pacer device present.Enteric tube is in place extending to the upper abdomen.
[2020-01-31] MEDS ORDERED: ZIPRASIDONE MESYLA 20 MG/VIAL IM PRN (20:29)
[2020-01-31] MEDS ORDERED: WATER FOR INJ,STERILE 10 ML IM PRN (20:29)
[2020-01-31] MEDS: ROSUVASTATIN 10 MG TAB PO SCH (20:33)
[2020-01-31] MEDS ORDERED: ZIPRASIDONE MESYLA 20 MG/VIAL IM ONE (21:00)
[2020-01-31] MEDS ORDERED: ACETAMINOPHEN 500 MG TAB ONE (21:31)
[2020-02-01] MEDS: INSULIN -REGULAR HUMAN 50 UNIT/0.5 ML ML SQ SCH ×4 (00:15→19:19)
[2020-02-01] MEDS ORDERED: MORPHINE 2 MG/ML SYR ONE ×3 (02:08→12:35)
[2020-02-01] MEDS: MORPHINE 4 MG/ML SYR IV PRN ×2 (02:10→06:36)
[2020-02-01] MEDS: LEVOTHYROXINE SOD 0.05 MG TABLET PO SCH (06:00)
[2020-02-01] MEDS: Meropenem 500 MG in NA CHLORIDE 0.9% 100 ML IV SCH ×2 (06:33→19:16)
[2020-02-01 06:34] LABS: Basophils % 0.7 % (0-1.3); Hematocrit 32.6 % (36.0-45.0); RBC Red Blood Cell Count 3.58 M/uL (3.86-4.86)
[2020-02-01 07:13] LABS: Albumin 1.9 g/dL (3.4-5.0); Magnesium 2.5 mg/dL (1.8-2.4); Phosphorus 2.4 mg/dL (2.5-4.9); Potassium 4.1 mmol/L (3.5-5.1)
[2020-02-01] MEDS: DULOXETINE 30 MG CAP PO SCH (09:00)
[2020-02-01] MEDS: PARICALCITOL 2 MCG/ML VIAL IV SCH (09:00)
[2020-02-01] MEDS: HOME MED 1 EA UNK (Empagliflozin [Jardiance] 25 MG) PO SCH (09:00)
[2020-02-01] MEDS ORDERED: HYDRALAZINE HCL 20 MG/ML VIAL ONE ×5 (09:45→22:54)
--- NOTE | 2020-02-01 11:46 | RAD REPORT ---
EXAM DESCRIPTION: CT - Head Brain Wo Cont - 02/01/2020 11:31 am CLINICAL HISTORY: AMS Headache, drowsiness COMPARISON: Head Brain Wo Cont dated 01/28/2020; HEAD BRAIN W O CONTRAST dated 12/18/2012 TECHNIQUE: All CT scans are performed using dose optimization technique as appropriate and may inclu de automated exposure control or mA/KV adjustment according to patient size. FINDINGS: No intracranial hemorrhage, hydrocephalus or extra-axial fluid collection.Mild generalized brain atrophy is present with mild periventricular and deep white matter chronic microvascular ische marti changes.No areas of brain edema or evidence of midline shift. The paranasal sinuses and mastoids are clear. The calvarium is intact. IMPRESSION: No acute intracranial abnormality.
[2020-02-01] MEDS ORDERED: NACHLORIDE 0.45% 1,000 ML IV ONE (12:00)
[2020-02-01] MEDS ORDERED: METOPROLOL TARTRATE 5 MG/5 ML INJ IV PRN (13:14)
[2020-02-01] MEDS ORDERED: METOPROLOL TARTRATE 5 MG/5 ML INJ IV ONE ×2 (13:19→17:49)
[2020-02-01 13:26] LABS: Blood Morphology Comment NOT SEEN (NOT SEEN); Platelet Estimate ADEQ
--- NOTE | 2020-02-01 13:45 | RAD REPORT ---
EXAM DESCRIPTION: RAD - Chest Single View - 02/01/2020 1:32 pm CLINICAL HISTORY: COPD COMPARISON: Portable January 30 TECHNIQUE: AP portable chest image was obtained 02/01/2020 1:32 pm . FINDINGS: Lung volumes remain low. Lung parenchymal opacification is not substantially different. Th ere may be slightly increased opacification in the right upper lobe. Heart size is normal range. Vasc ulature still within range of normal. NG tube has been removed. Right-sided central line is in place. Pacemaker again noted. No new tube or line. No measurable pleural effusion and no pneumothorax. No acute bony abnormality seen. No acute aortic findings suspected. IMPRESSION: No substantial change to the lung parenchyma from prior imaging. There may be slightly i ncreased opacification in the right upper lobe. This is a minimal change if any and can be monitored on follow-up imaging. NG tube has been removed. No new tube or line placement.
--- NOTE | 2020-02-01 14:02 | P.PN ---
Date of Service: 02/01/20 S: Postoperative day 2 patient opens her eyes to verbal stimuli and looks around. Still appears to be obtained. Nurses report that her pain appears well controlled however at this time. 0: Vital signs are stable, appears to be diuresing. Wound is clean, ostomy is viable. CT scan of the head was negative, a chest x-ray has been ordered no report on the chart but appears to implies some mild vascular load. A: Surgically stable P: Continue current therapy. Patient has been started on TPN. Hopefully will be able to start some clear liquids once the colostomy started putting out. Minimal out of TAMMIE drain, and will Dc it today.
[2020-02-01] MEDS ORDERED: CLONIDINE 0.2 MG/PATCH TD SCH (14:20)
[2020-02-01] MEDS: ENOXAPARIN 30 MG/0.3 ML SQ SCH (14:34)
[2020-02-01] MEDS ORDERED: ENOXAPARIN 40 MG/0.4 ML SQ ONE (14:37)
[2020-02-01] MEDS ORDERED: INSULIN -REGULAR HUMAN 50 UNIT/0.5 ML ML ONE (14:37)
[2020-02-01] MEDS ORDERED: AA 5%/D20W/ELECTROLYTES-TPN 2,000 ML, Lipids 20% 250 ML with MULTIVITAMINS INJ 10 ML IV SCH ×3 (17:00)
[2020-02-01] MEDS: HYDRALAZINE HCL 20 MG/ML VIAL IV PRN (17:45)
[2020-02-01] MEDS ORDERED: HYDRALAZINE HCL 20 MG/ML VIAL IV PRN (17:49)
[2020-02-01] MEDS ORDERED: GLUCAGON 1 MG/VIAL IM PRN (18:32)
[2020-02-01] MEDS ORDERED: D50W 25 GM/50 ML SYRINGE/VIAL IV PRN (18:32)
[2020-02-01] MEDS ORDERED: NITROGLYCERIN 1 GM PKT TD ONE ×2 (18:45→18:54)
[2020-02-01] MEDS: ROSUVASTATIN 10 MG TAB PO SCH (19:40)
[2020-02-01] MEDS: NITROGLYCERIN/D5W 50 MG/250 ML BTL IV PRN (20:33)
[2020-02-01] MEDS ORDERED: NITROGLYCERIN/D5W 50 MG/250 ML BTL IV ONE (20:42)
[2020-02-01] MEDS: INSULIN GLARGINE 100 UNITS/ML SQ SCH (21:00)
[2020-02-01] MEDS ORDERED: HYDRALAZINE HCL 20 MG/ML VIAL IV SCH ×2 (22:30→23:30)
[2020-02-01] MEDS ORDERED: CLONIDINE 0.3 MG/PATCH TD SCH (23:00)
[2020-02-01] MEDS: HYDRALAZINE HCL 20 MG/ML VIAL IV SCH (23:44)
[2020-02-02] MEDS: INSULIN -REGULAR HUMAN 50 UNIT/0.5 ML ML SQ SCH ×4 (00:15→15:04)
[2020-02-02] MEDS ORDERED: INSULIN -REGULAR HUMAN 50 UNIT/0.5 ML ML ONE ×4 (00:24→10:25)
[2020-02-02] MEDS: METOPROLOL TARTRATE 5 MG/5 ML INJ IV PRN (01:51)
[2020-02-02] MEDS ORDERED: METOPROLOL TARTRATE 5 MG/5 ML INJ IV ONE (02:01)
--- NOTE | 2020-02-02 02:18 | PN ---
Date of Progress Note: 02/01/2020 Chief Complaint: Acute kidney injury on chronic kidney disease, superimposed with prerenal azotemia secondary to UDAY inhibitor and Lasix. Obstructive uropathy was ruled out. History Of Present Illness: The patient was admitted with diverticulitis, perforated sigmoid. She u nderwent surgery for perforated viscus. Review of Systems: Unobtainable. Physical Examination: Lungs: Clear to auscultation bilaterally. Heart: S1, S2. Abdomen: Soft, benign. Extremities: No edema. Laboratory Data: Potassium 4.4, sodium 139, phosphorus 5.1, BUN 58, creatinine 2.2. Impression And Plan: 1.Acute on chronic kidney injury. Continue IV fluids. Monitor fluid balance. 2.Secondary hyperparathyroidism. The patient was started on Zemplar. 3.Coronary artery disease, congestive heart failure. Continue hydration and TPN. 4.Perforated bowel per Surgical team. LENA/MODL Voice ID: [id number] Report ID: [id number]
[2020-02-02 04:13] VITALS: BMI 23.6
[2020-02-02 04:40] LABS: Absolute Lymphocytes (CBC) 0.8 K/uL (0.7-4.9); Basophils % 0.5 % (0-1.3); Hematocrit 36.9 % (36.0-45.0); Lymphocytes % 4.9 % (15.3-44.8); MPV 8.5 fL (7.6-11.3); RBC Red Blood Cell Count 3.99 M/uL (3.86-4.86)
[2020-02-02] MEDS: LEVOTHYROXINE SOD 0.05 MG TABLET PO SCH (04:53)
[2020-02-02] MEDS: HYDRALAZINE HCL 20 MG/ML VIAL IV SCH ×3 (05:03→21:59)
[2020-02-02] MEDS: Meropenem 500 MG in NA CHLORIDE 0.9% 100 ML IV SCH ×2 (05:03→16:31)
[2020-02-02 05:09] LABS: Magnesium 2.6 mg/dL (1.8-2.4); Phosphorus 2.5 mg/dL (2.5-4.9); Potassium 4.4 mmol/L (3.5-5.1)
[2020-02-02] MEDS ORDERED: D50W 25 GM/50 ML SYRINGE/VIAL IV PRN ×2 (05:23→15:54)
[2020-02-02] MEDS ORDERED: INSULIN -REGULAR HUMAN 50 UNIT/0.5 ML ML IV ONE (05:23)
[2020-02-02] MEDS ORDERED: GLUCAGON 1 MG/VIAL IM PRN ×2 (05:23→15:54)
[2020-02-02] MEDS ORDERED: NACHLORIDE 0.45% 1,000 ML IV SCH (06:00)
[2020-02-02] MEDS ORDERED: NACHLORIDE 0.45% 1,000 ML IV ONE (06:14)
[2020-02-02] MEDS: NITROGLYCERIN 0.4 MG/HR (10 MG) PATCH TD SCH (09:00)
[2020-02-02] MEDS: DULOXETINE 30 MG CAP PO SCH (09:00)
[2020-02-02] MEDS: ENOXAPARIN 30 MG/0.3 ML SQ SCH (09:00)
[2020-02-02] MEDS ORDERED: ENOXAPARIN 30 MG/0.3 ML SQ ONE (09:45)
[2020-02-02] MEDS: PARICALCITOL 2 MCG/ML VIAL IV SCH (10:42)
[2020-02-02] MEDS ORDERED: VANCOMYCIN/NS 1 gm 1 GM/250 ML BAG IVPB SCH ×2 (11:00→18:00)
[2020-02-02] MEDS: NITROGLYCERIN/D5W 50 MG/250 ML BTL IV PRN ×3 (11:05→23:25)
[2020-02-02] MEDS ORDERED: NITROGLYCERIN/D5W 50 MG/250 ML BTL IV ONE ×3 (11:11→23:13)
[2020-02-02] MEDS ORDERED: MORPHINE 2 MG/ML SYR ONE ×2 (12:14→19:36)
[2020-02-02] MEDS: HYDROMORPHONE HCL 1 MG/ML INJ IV PRN (12:16)
[2020-02-02] MEDS ORDERED: NA CHLORIDE 0.9% 1,000 ML ONE ×2 (14:54→18:55)
--- NOTE | 2020-02-02 14:57 | P.PN ---
Date of Service: 02/02/20 S: Postoperative day 3. Patient is awake, but still has that a stunned affect. Looks a rounds, my nurse, but still appears to be confused. O: Hypertensive, adequate urine output. Incision is clean, colostomy is viable but somewhat edematous. A: Surgically stable, still has some medical issues P: Will keep her 1 more day as his on a nitroglycerin drip, hopefully transfer to the floor soon. I will start her on full liquids to see if she tolerates them.
[2020-02-02] MEDS: HYDRALAZINE HCL 20 MG/ML VIAL IV PRN (14:58)
[2020-02-02] MEDS ORDERED: HYDRALAZINE HCL 20 MG/ML VIAL ONE ×2 (15:03→22:04)
[2020-02-02] MEDS ORDERED: FUROSEMIDE 20 MG/ 2ML VIAL IV ONE (15:52)
[2020-02-02] MEDS ORDERED: INSULIN -REGULAR HUMAN 100 UNIT in NA CHLORIDE 0.9% 100 ML IV SCH (16:00)
[2020-02-02] MEDS ORDERED: FUROSEMIDE 20 MG TABLET ONE (18:17)
[2020-02-02] MEDS ORDERED: FUROSEMIDE 20 MG/ 2ML VIAL ONE (18:17)
[2020-02-02] MEDS: MORPHINE 4 MG/ML SYR IV PRN (19:47)
--- NOTE | 2020-02-02 20:21 | PN ---
Subjective: The patient was admitted with perforated sigmoid. The patient undergo surgery. The pat ient in the last 48 hours started having uncontrolled blood pressure. Yesterday, we had to place the patient on nitroglycerin drip and I started the patient on around the clock hydralazine. Blood pres sure started to slightly better. Physical Examination: Vital Signs: When I saw the patient, blood pressure 171/79, pulse of 108. The patient had good urin e output of 2200. Chest: Faint rales, bilateral. Heart: S1, S2. Systolic murmur. Abdomen: Mild tenderness. Extremity: Trace edema. Neuro: The patient is sleepy, moving 4 extremities. No focal. Laboratory Data: WBC 15.7, H and H 11.8/36.9, platelets 236. Sodium 148, potassium 4.4, bicarb 25, BUN 43, creatinine 1.2, GFR of 39, blood sugar above 500, calcium 8.7, phosphor 42.5, magnesium 2.6, albumin of 2. Current Medications: The patient on include; 1.Meropenem. 2.Vancomycin. 3.Clonidine patch 0.3. 4.Nitroglycerin drip. 5.Zofran. 6.Levothyroxine. 7.IV fluid. 8.Zemplar. Assessment And Plan: 1.Acute kidney injury secondary to prerenal superimposed with Lasix and UDAY inhibitor, recovered leonard k close to baseline. I will keep holding UDAY inhibitor. The patient looked to me on the wet side. I am going to give her extra dose of Lasix today and we will follow up the patient. 2.Hypertension, uncontrolled. I going to continue nitroglycerin drip and clonidine patch. We will place the patient on around the clock hydralazine and we will follow up the patient. 3.Diabetes, not controlled. I am going to start the patient on insulin. The patient already on sli ding scale. We will place the patient on insulin drip and we will follow up. 4.Perforated sigmoid. Follow up with Surgery. Continue current antibiotic. KAI/DEISY Voice ID: [id number] Report ID: [id number]
[2020-02-02] MEDS: ROSUVASTATIN 10 MG TAB PO SCH (20:35)
--- NOTE | 2020-02-02 21:36 | PN ---
Subjective: Ms. Ernst is doing poorly. Today, her cognition is worse. She is not able to converse even a few words she was saying yesterday. Yesterday, her responses were to every single que stion. Today, she is not able to open the eyes and have any kind of conversation with me. Couple da ys ago, she was able to follow orders for moving her limbs. Today, she is not able to do so. Unfort unately, she is sleeping into semicomatose status at this point. We have not been able to cure her g eneral condition after operation. Surgical part was performed without any complications, but as I alcala spected, recovery will be the problem for this lady, who had come in with septic shock, hypotension, diverticular abscess, renal failure, and has multiple vascular complications secondary to diabetes in the past. I talked to the patient's daughter on a daily basis. I explained to her what has gone on every day. Yesterday, we had problem with uncontrolled hypertension and hyperglycemia since being o n TPN. Somehow TPN raised her blood pressure to 210 systolic, and even with IV hydralazine, IV Lopre ssor, topical Catapres, and IV nitroglycerin, the blood pressure could not be controlled. So, at thi s point, I discontinued TPN to see if she improves on her blood pressure and sugar control without TP N. Her prognosis remains overall poor. I have talked to the patient's daughter and discussed that s he may or may not survive at this point, but she will continue to get therapy as aggressively as we c an. She did not want to be intubated in the past, which is what I need to confirm with the family ag ain and place her on DNR status if it is okay with the family following the patient's wishes. RVD/MODL Voice ID: [id number] Report ID: [id number]
[2020-02-02] MEDS: INSULIN GLARGINE 100 UNITS/ML SQ SCH (21:59)
[2020-02-02] MEDS ORDERED: INSULIN GLARGINE 100 UNITS/ML SQ ONE (22:04)
--- NOTE | 2020-02-02 22:09 | PN ---
Date of Progress Note: 02/02/2020 Ms. Ernst was seen earlier for cardiac clearance for emergency surgery for perforated bowel. Remains n.p.o. She has had issues with paroxysmal atrial fibrillation and hypertension. Her last blood pre ssure was 171/79. She is on IV nitroglycerin. Her glucose was over 500. Her creatinine is 1.56 fro m 2.20. It is today 1.28. Her white count remained elevated. She is on hydralazine IV. She is get ting IV metoprolol. I would continue that regimen. Increase hydralazine to every 4 hours. Consider Nipride. Her pressure remains an issue. Hopefully, when she is able to take p.o., we can help her with p.o. medication. I will discuss the case further with Dr. Dyson, but we will continue to follow her. OBDULIA/DEISY Voice ID: [id number] Report ID: [id number]
[2020-02-03 02:04] LABS: Albumin, (SPE) 2.1 g/dL (3.8-4.8); Alpha-1-Globulins 0.6 g/dL (0.2-0.3); Alpha-2-Globulins 0.7 g/dL (0.5-0.9); Gamma Globulins 0.5 g/dL (0.8-1.7); INTERPRETATION REPORT
[2020-02-03] MEDS: HYDROMORPHONE HCL 1 MG/ML INJ IV PRN (02:38)
[2020-02-03] MEDS ORDERED: HYDROMORPHONE HCL 1 MG/ML INJ ONE (02:48)
[2020-02-03] MEDS ORDERED: HYDRALAZINE HCL 20 MG/ML VIAL ONE ×3 (03:29→18:23)
[2020-02-03] MEDS: HYDRALAZINE HCL 20 MG/ML VIAL IV SCH (03:48)
[2020-02-03 05:25] LABS: Absolute Lymphocytes (CBC) 1.8 K/uL (0.7-4.9); Basophils % 0.4 % (0-1.3); Hematocrit 31.9 % (36.0-45.0); Lymphocytes % 10.3 % (15.3-44.8); MPV 8.1 fL (7.6-11.3); RBC Red Blood Cell Count 3.55 M/uL (3.86-4.86)
[2020-02-03] MEDS: NITROGLYCERIN/D5W 50 MG/250 ML BTL IV PRN (05:39)
[2020-02-03] MEDS: Meropenem 500 MG in NA CHLORIDE 0.9% 100 ML IV SCH ×2 (05:39→17:53)
[2020-02-03] MEDS: LEVOTHYROXINE SOD 0.05 MG TABLET PO SCH (05:40)
[2020-02-03 05:49] LABS: Magnesium 2.5 mg/dL (1.8-2.4); Phosphorus 2.7 mg/dL (2.5-4.9); Potassium 3.3 mmol/L (3.5-5.1)
[2020-02-03] MEDS ORDERED: NITROGLYCERIN/D5W 50 MG/250 ML BTL IV ONE (05:49)
[2020-02-03] MEDS ORDERED: D5W 1,000 ML with POTASSIUM CL 20 MEQ IV SCH ×2 (08:00)
[2020-02-03] MEDS ORDERED: D50W 25 GM/50 ML SYRINGE/VIAL IV PRN (08:19)
[2020-02-03] MEDS ORDERED: GLUCAGON 1 MG/VIAL IM PRN (08:19)
[2020-02-03] MEDS: INSULIN -REGULAR HUMAN 50 UNIT/0.5 ML ML SQ SCH ×4 (09:00→21:02)
[2020-02-03] MEDS: ENOXAPARIN 30 MG/0.3 ML SQ SCH (09:48)
[2020-02-03] MEDS: PARICALCITOL 2 MCG/ML VIAL IV SCH (09:49)
[2020-02-03] MEDS: NITROGLYCERIN 0.4 MG/HR (10 MG) PATCH TD SCH (09:49)
[2020-02-03] MEDS: MORPHINE 2 MG/ML SYR IV PRN ×3 (09:53→22:52)
[2020-02-03] MEDS ORDERED: ENOXAPARIN 30 MG/0.3 ML SQ ONE (09:54)
[2020-02-03] MEDS ORDERED: MORPHINE 2 MG/ML SYR ONE ×3 (09:54→23:01)
[2020-02-03] MEDS: D5W 1,000 ML with POTASSIUM CL 20 MEQ IV SCH ×4 (10:55→20:01)
[2020-02-03] MEDS ORDERED: HYDRALAZINE HCL 20 MG/ML VIAL IV SCH ×3 (11:00→18:45)
[2020-02-03] MEDS ORDERED: POTASSIUM CL 40 MEQ in NA CHLORIDE 0.9% 500 ML IV SCH (12:00)
[2020-02-03] MEDS ORDERED: VANCOMYCIN/NS 1 gm 1 GM/250 ML BAG IVPB SCH (14:00)
--- NOTE | 2020-02-03 15:06 | P.PN ---
Date of Service: 02/03/20 S: Postoperative day 4 . The patient is occasionally arousable. Family is here at bedside. Family reiterates that she has not seen to be in any pain. O: Still has all towel blood pressure. Surgical incisions are clean, colostomy viable with flatus in colostomy bag. Central line site is clean. A: From a surgical point of view, no issues. Medically however is having trouble with blood pressure comma blood sugars, and her mental state. Discussed this with the family. P: Patient has not done well since surgery. She is obviously in a state of decline. This was discussed with the family and they understand. [place] is very poor. They understand the grim outlook for this patient.
--- NOTE | 2020-02-03 15:07 | PN ---
Date of Progress Note: 02/03/2020 Subjective: The patient was admitted with perforated sigmoid. Patient had acute kidney injury secon lars to prerenal ARB. The patient undergoes surgery yesterday. Her blood pressure not controlled. Patient's TPN has been discontinued. Nitroglycerin was discontinued. The patient's blood pressure st ill fluctuating up to 190. Objective: Vital Signs: When I saw the patient, blood pressure 156/66, pulse of 100. Chest: Clear to auscultation. Heart: S1, S2. Systolic murmur. Abdomen: Tenderness on the right upper quadrant. Extremities: No edema. Neuro: Responds to pain and verbal. Moving 4 extremities. No focality. Laboratory Data: WBC 17.4, H and H 10.6/31.9, platelet 231. Sodium 155, potassium 3.3, bicarb 29, B UN 45, creatinine 1.1, GFR of 46, calcium 8.6, phosphorus 2.7, magnesium 2.5. Current Medications: The patient on include, 1.Lovenox. 2.Clonidine patch. 3.Hydralazine p.r.n. 4.Metoprolol. 5.Nitroglycerin patch. 6.Geodon. Assessment And Plan: 1.Acute kidney injury secondary to prerenal toxic acute tubular necrosis, superimposed with UDAY inhi bitor and Lasix, recovered, back to baseline. 2.Hypertension, not controlled. Again, I am going to resume hydralazine every 6 hours to have zarina r control on the blood pressure. Continue nitroglycerin and clonidine patch for the time being. The hydralazine is going to be 10 mg every 6 hours. 3.Hypernatremia. I agree with D5. We will change it to 100 per hour. 4.Hypokalemia. We will supplement. 5.Perforated sigmoid status post surgery. Continue meropenem and vancomycin. Kidney function has b een normalized. We will follow up vancomycin trough. I am going to go ahead and repeat the CT abdom en and pelvis, and we will follow up. Overall patient is deteriorating. Poor prognosis. The patien t is DNR as by family. We will follow up. SCOTT Voice ID: [id number] Report ID: [id number]
[2020-02-03] MEDS: HYDROMORPHONE HCL 0.5 MG/0.5 ML INJ IV PRN (16:28)
[2020-02-03] MEDS ORDERED: HYDROMORPHONE HCL 0.5 MG/0.5 ML INJ ONE (16:33)
[2020-02-03] MEDS: HYDRALAZINE HCL 20 MG/ML VIAL IV PRN (18:13)
[2020-02-03] MEDS: INSULIN GLARGINE 100 UNITS/ML SQ SCH (21:03)
[2020-02-03] MEDS ORDERED: INSULIN GLARGINE 100 UNITS/ML SQ ONE (21:28)
--- NOTE | 2020-02-03 22:44 | PN ---
Subjective: Ms. Ernst is 89-year-old lady with multiple medical problems including diabetes, diabeti c neuropathy, peripheral vascular disease from diabetes, history of recurrent strokes in the past, hi story of atrial fibrillation, comes in with diverticular abscess, unimproved on IV antibiotics, had t o go for emergency surgery, being high risk for surgery. She did not do well after surgery, recovery was a problem. She is not able to wake up anymore, slowly she is sleeping into comatose condition. Currently, she is semicomatose. She responds to painful stimulus with moaning only now. The patien t's family is very understanding. They understand most likely the patient will not survive and they want to keep her comfortable. After the son arrives from out of state, they will possibly go for hos pice inpatient. Currently, her medical problems are multiple and worsening at the same time. Her cr eatinine is improving, but her sodium is high. Potassium is low. She is showing signs of dehydratio n. Her white count is increasing, even though she is on extensive antibiotic therapy like vancomycin , meropenem. White count 17,000. Family does not want anything aggressive at this point. They do n ot want CAT scan nor continue on antibiotics until the son arrives and they will decide and withdraw the care after that. The patient is DNR. HEIDI/MODL Voice ID: [id number] Report ID: [id number]
[2020-02-03] MEDS: METOPROLOL TARTRATE 5 MG/5 ML INJ IV PRN (22:51)
[2020-02-03] MEDS ORDERED: METOPROLOL TARTRATE 5 MG/5 ML INJ IV ONE (23:01)
[2020-02-04] MEDS ORDERED: HYDRALAZINE HCL 20 MG/ML VIAL ONE ×3 (00:45→11:21)
[2020-02-04] MEDS: HYDRALAZINE HCL 20 MG/ML VIAL IV SCH ×4 (00:46→17:40)
[2020-02-04] MEDS: INSULIN -REGULAR HUMAN 50 UNIT/0.5 ML ML SQ SCH ×5 (00:46→17:00)
[2020-02-04] MEDS ORDERED: HYDROMORPHONE HCL 0.5 MG/0.5 ML INJ ONE ×3 (01:00→14:22)
[2020-02-04] MEDS: HYDROMORPHONE HCL 0.5 MG/0.5 ML INJ IV PRN ×3 (01:10→14:15)
[2020-02-04] MEDS: METOPROLOL TARTRATE 5 MG/5 ML INJ IV PRN (03:46)
[2020-02-04] MEDS ORDERED: METOPROLOL TARTRATE 5 MG/5 ML INJ IV ONE (03:56)
[2020-02-04] MEDS: Meropenem 500 MG in NA CHLORIDE 0.9% 100 ML IV SCH ×2 (05:02→17:40)
[2020-02-04] MEDS: LEVOTHYROXINE SOD 0.05 MG TABLET PO SCH (05:02)
[2020-02-04 05:32] VITALS: TEMP 98.1
[2020-02-04 06:18] LABS: Absolute Lymphocytes (CBC) 1.9 K/uL (0.7-4.9); Basophils % 0.3 % (0-1.3); Hematocrit 34.3 % (36.0-45.0); Lymphocytes % 12.4 % (15.3-44.8); MPV 8.5 fL (7.6-11.3); RBC Red Blood Cell Count 3.73 M/uL (3.86-4.86)
[2020-02-04] MEDS: D5W 1,000 ML with POTASSIUM CL 20 MEQ IV SCH ×4 (06:34→14:56)
[2020-02-04 06:40] LABS: Magnesium 2.3 mg/dL (1.8-2.4); Phosphorus 2.6 mg/dL (2.5-4.9); Potassium 4.3 mmol/L (3.5-5.1)
--- NOTE | 2020-02-04 07:32 | EKG ---
Test Date: 2020-02-02 Test Time: 03:34:27 Legal Recovery Specialist: MEASUREMENT RESULTS: Intervals: Rate: 102 [place]: QRSD: 94 QT: 362 QTc: 471 [place]: P: [place]: QRS: 11 T: -89 INTERPRETIVE STATEMENTS: Atrial fibrillation with rapid ventricular response Cannot rule out Anterior infarct, age undetermined Marked ST abnormality, possible lateral subendocardial injury Abnormal ECG Compared to ECG 01/30/2020 10:32:40 Myocardial infarct finding now present Ventricular premature complex(es) no longer present Possible ischemia no longer present ST (T wave) deviation still present Electronically Signed On 02-04-20 07:28:56 CDT by Howard Quinones
[2020-02-04] MEDS: ENOXAPARIN 30 MG/0.3 ML SQ SCH (08:15)
[2020-02-04] MEDS: NITROGLYCERIN 0.4 MG/HR (10 MG) PATCH TD SCH (08:15)
[2020-02-04] MEDS: PARICALCITOL 2 MCG/ML VIAL IV SCH (08:16)
[2020-02-04] MEDS ORDERED: ENOXAPARIN 30 MG/0.3 ML SQ ONE (08:21)
[2020-02-04] MEDS: MORPHINE 2 MG/ML SYR IV PRN (11:30)
[2020-02-04] MEDS ORDERED: MORPHINE 2 MG/ML SYR ONE (11:40)
[2020-02-04 16:40] VITALS: O2SAT 98
--- NOTE | 2020-02-04 17:13 | PN ---
Date of Progress Note: 02/04/2020 Subjective: The patient was admitted with small bowel obstruction, acute kidney injury secondary to prerenal dehydration. Patient's IV fluids kidney function normalized. The patient had severe hypert ension with the TPN. The patient's clinical condition has been deteriorated. Family decided to proc eed with hospice care. Objective: Vital Signs: Today when I examined her, blood pressure 187/62, pulse of 86. General: Confused, just moving. Chest: Clear to auscultation. Heart: S1, S2. Regular. Abdomen: Soft, tender. Extremities: no edema. Neuro: Confused. Only moving. Laboratory Data: H and H 11.1/34.3. Sodium 135, potassium 4.3, bicarb 27, BUN 44, creatinine 0.9, c alcium 8, phosphorus 2.6, magnesium 2.3. Current Medications: The patient on include, 1.Meropenem. 2.Vancomycin. 3.Lovenox. 4.Nitroglycerin. 5.Clonidine. 6.Zofran. 7.Levothyroxine. Assessment And Plan: 1.Acute kidney injury secondary to prerenal, recovered, resolved. 2.Hypernatremia secondary to dehydration. We will continue IV fluids. Patient is going to be on ho spice. We will sign. Please call us as needed. 3.Hypertension. Continue p.r.n. medications. Again patient will be on hospice. SCOTT Voice ID: [id number] Report ID: [id number]
[2020-02-04 20:53] VITALS: BP 186/72
--- NOTE | 2020-02-04 21:11 | P.DS ---
Admission Date: 01/28/20 Discharge Date: 02/04/20 Disposition: HOSPICE-MEDICAL FACILITY Discharge Condition: SERIOUS Reason for Admission: LAST NIGHT PAIN GOT WORSE - Problems (1) Diverticulitis of colon with perforation Status: Acute Qualifiers: Diverticulitis bleeding: without bleeding Qualified Code(s): K57.20 - Diverticulitis of large intestine with perforation and abscess without bleeding (2) Diabetic peripheral vascular disease Status: Chronic (3) Diabetes mellitus with cardiac complication Status: Chronic (4) A-fib Status: Chronic Qualifiers: Atrial fibrillation type: longstanding persistent Qualified Code(s): I48.11 - Longstanding persistent atrial fibrillation (5) Acute renal insufficiency Status: Acute (6) Dehydration Status: Acute (7) Hypotension Status: Acute Qualifiers: Hypotension type: other hypotension type Qualified Code(s): I95.89 - Other hypotension (8) Septic shock Status: Acute (9) CVA (cerebral vascular accident) Status: Acute Qualifiers: CVA mechanism: thrombosis (10) Fluid overload Status: Acute Brief History of Present Illness: MS. DANIELLE IS PATIENT WITH MANY MEDICAL ISSUES, DM, HTN, HISTORY OF CVA, A FIB, PVD WITH STENTS. CAD WITH STENTS, DIVERTICULOSIS, COMES WITH ABDOMEN PAIN, LOWER R SIDE, CHILLS, NAUSEA, UNSTEADY GAIT AND NUMBNESS OF L SIDE OF BODY FOR A DAY. SHE CALLED AND I ASKED HER TO ER SHE SEEMED VERY ILL TO BE IN ER WITH POSSIBLE ABDOMEN INFECTION, CVA AND HAD TO BE SCREENED FOR COVID. Hospital Course: MS. DANIELLE COMES WITH DIVERTILITIS WITH PERFORATION, FAILS IV ABX, NEEDED EMERGENCY SURGERY AND NEVER RECOVERED AFTER THAT. SHE WAS A HIGH RISK PATIENT AND FAMILY WAS EXPLAINED ABOUT PROGNOSIS ON DAILY BASIS. I SUGGESTED INPATIENT HOSPICE I EXPECT SHE NOW IS COMATOSE AND WILL NOT RECOVER DEPITE EXTENSIVE EFFORTS. FAMILY IS HERE TODAY AND DECIDED TO PUT HER ON HOSPICE. SHE IS READMITTED TO HOSPICE ON SECOND FLOOR. Vital Signs/Physical Exam: Temp Pulse Resp BP Pulse Ox 98.1 F 88 17 186/72 H 98 02/04/20 08:00 02/04/20 16:00 02/04/20 16:00 02/04/20 16:00 02/04/20 16:00 Laboratory Data at Discharge: WBC 15.3 K/uL (4.3-10.9) H 02/04/20 05:10 Hgb 11.1 g/dL (12.0-15.0) L 02/04/20 05:10 Hct 34.3 % (36.0-45.0) L 02/04/20 05:10 Plt Count 285 K/uL (152-406) D 02/04/20 05:10 PT 24.5 SECONDS (9.5-12.5) H 01/28/20 20:08 INR 2.11 01/28/20 20:08 APTT 34.1 SECONDS (24.3-36.9) 01/28/20 20:08 Sodium 155 mmol/L (136-145) H 02/04/20 05:10 Potassium 4.3 mmol/L (3.5-5.1) 02/04/20 05:10 BUN 44 mg/dL (7-18) H 02/04/20 05:10 Creatinine 0.95 mg/dL (0.55-1.3) 02/04/20 05:10 Glucose 186 mg/dL (74-106) H 02/04/20 05:10 Phosphorus 2.6 mg/dL (2.5-4.9) 02/04/20 05:10 Magnesium 2.3 mg/dL (1.8-2.4) 02/04/20 05:10 Total Bilirubin 0.8 mg/dL (0.2-1.0) 01/30/20 18:30 AST 31 U/L (15-37) 01/30/20 18:30 ALT 39 U/L (12-78) 01/30/20 18:30 Alkaline Phosphatase 109 U/L (45-117) 01/30/20 18:30 Lipase 73 U/L (73-393) 01/28/20 18:30 Home Medications: Furosemide [Lasix*] 20 mg PO DAILY 12/18/12 Glimepiride 4 mg PO BID 12/18/12 Isosorbide [place] [Imdur*] 60 mg PO DAILY 12/18/12 Levothyroxine [Synthroid*] 50 mcg PO [id number] 12/18/12 Losartan Potassium [Cozaar] 100 mg PO DAILY 12/18/12 Potassium Chloride [K-Dur] 20 meq PO DAILY 12/18/12 Rosuvastatin [Crestor*] 20 mg PO BEDTIME 12/18/12 atenoloL [Tenormin*] 50 mg PO DAILY 12/18/12 Apixaban [Eliquis] 5 mg PO ONCE 01/29/20 Clopidogrel Bisulfate [Clopidogrel] 75 mg PO ONCE 01/29/20 Duloxetine HCl 30 mg PO DAILY 01/29/20 Empagliflozin [Jardiance] 25 mg PO DAILY 01/29/20
== END 2020-02-04 20:42 | disposition hospice, inpatient (51) | DRG 853 ==
LOC: ER 18:12 → ERHOLD 19:46 → 2ND 02-04 20:33
PROVIDERS: ADMIT Internal Medicine; ATTEND Internal Medicine
PROC: 0J9C00Z Drainage of Pelvic Region Subcutaneous Tissue and Fascia with Drainage Device, Open Approach (ICD-10-PCS; 2020-01-30)
PROC: 0DBN0ZZ Excision of Sigmoid Colon, Open Approach (ICD-10-PCS; principal; 2020-01-30 13:00)
PROC: 02HV33Z Insertion of Infusion Device into Superior Vena Cava, Percutaneous Approach (ICD-10-PCS; 2020-01-31)
PROC: 3E0336Z Introduction of Nutritional Substance into Peripheral Vein, Percutaneous Approach (ICD-10-PCS; 2020-02-01)
DX: A41.9 Sepsis, unspecified organism (principal); R65.21 Severe sepsis with septic shock; N17.0 Acute kidney failure with tubular necrosis; R40.20 Unspecified coma; K57.20 Diverticulitis of large intestine with perforation and abscess without bleeding; I48.11 Longstanding persistent atrial fibrillation; E87.1 Hypo-osmolality and hyponatremia; N25.81 Secondary hyperparathyroidism of renal origin; I13.0 Hypertensive heart and chronic kidney disease with heart failure and stage 1 through stage 4 chronic kidney disease, or unspecified chronic kidney disease; I50.9 Heart failure, unspecified; N18.9 Chronic kidney disease, unspecified; E11.22 Type 2 diabetes mellitus with diabetic chronic kidney disease; E11.51 Type 2 diabetes mellitus with diabetic peripheral angiopathy without gangrene; E11.40 Type 2 diabetes mellitus with diabetic neuropathy, unspecified; E11.65 Type 2 diabetes mellitus with hyperglycemia; E87.6 Hypokalemia; E87.5 Hyperkalemia; K21.9 Gastro-esophageal reflux disease without esophagitis; E03.9 Hypothyroidism, unspecified; I25.10 Atherosclerotic heart disease of native coronary artery without angina pectoris; E86.0 Dehydration; N73.9 Female pelvic inflammatory disease, unspecified; E11.69 Type 2 diabetes mellitus with other specified complication; Z66 Do not resuscitate; Z90.49 Acquired absence of other specified parts of digestive tract; Z90.710 Acquired absence of both cervix and uterus; Z95.0 Presence of cardiac pacemaker; Z95.5 Presence of coronary angioplasty implant and graft; Z88.1 Allergy status to other antibiotic agents; Z88.8 Allergy status to other drugs, medicaments and biological substances; Z79.890 Hormone replacement therapy; Z79.84 Long term (current) use of oral hypoglycemic drugs; Z79.899 Other long term (current) drug therapy; Z79.01 Long term (current) use of anticoagulants; Z86.73 Personal history of transient ischemic attack (TIA), and cerebral infarction without residual deficits
CPT/HCPCS: 36415; 70450; 71045; 74176; 80048; 80053; 80069; 80076; 80202; 82550; 82565; 82570; 82947; 83690; 83735; 83970; 84156; 84165; 85025; 85027; 85610; 85730; 87040; 88304; 88307; 93005; 97110; 97161; 99285; J0330; J0360; J0744; J1170; J1650; J1815; J1940; J2270; J2405; J2501; J2704; J2710; J3010; J3370; J3480; J3486; J7030; J7040; J7120; J7799; U0002

== ENCOUNTER 2020-02-04 17:45 | Inpatient (IN) | payer OTHER ==
--- OUTSIDE RECORDS SUMMARY | 2020-02-04 17:50 | XMS REPORT | Continuity of Care Document ---
:1930 Author Organization [facility] t Address [address] [place] [address] Care Team Providers Name Role Phone Kiel [...] drug Canaglif Propensi Active Other (See Ney ashbyn ty to Comments) 11-13 Methodi adverse 00:00: [...] Date Stop Date Source Natural father Diabetes [facility]odist Natural father Heart disease [place] [facility] Natural mother Diabetes [facility] Natural mother Heart disease [facility] Natural mother Hypertension [facility] Social History Social Habit Start Date Stop Date Quantity Comments Source Sex Assigned At [facility] ethodist Alcohol intake 2018-01-21 2018-01-21 Current [facility] 00:00:00 00:00:00 non-drinker of alcohol (finding) Smoking Status Start Date Stop Date Source [facility] Medications Ordered Filled Start Stop Current Ordering [...] tablet 12:54: every st 25 morning. atenolol 2018-0 Yes 50mg QD Take 50 mg Maura ston (TENORMIN) 7-27 by mouth Metho di 50 MG 12:54: daily. st tablet 25 losartan 0 Yes 100mg QD Take 100 [place] [...] mg tablet 12:54: daily. st 25 verapamil 2018-0 Yes 120mg QD Take 120 Maura ston [...] daily. st 25 mg 25 tablet apixaban 2017-0 Yes 5mg Q.5D Take 5 mg [place] (ELIQUIS) 5 - by mouth 2 Me thodi mg tablet [...] minutes as needed for chest pain. clopidogrel 0 Yes 75mg QD Take 1 [place] (PLAVIX) 75 5-24 tablet (75 Me th[place] mg tablet 00:00: mg total) st 00 by mouth daily. Procedures This patient has no known procedures. Plan of Care Planned Activity Planned Date Details Comments Source Future Scheduled 2020-02-23 INFLUENZA VACCINE [place] [facility] 00:00:00 [code = INFLUENZA VACCINE] Future Scheduled 1995[birth year]10-31 65+ PNEUMOCOCCAL [place] [facility] 00:00:00 VACCINE (1 of 2 - PCV13) [code = 65+ PNEUMOCOCCAL VACCINE (1 of 2 - PCV13)] Future Scheduled 1980 SHINGLES VACCINES (#1) [place] [facility] 00:00:00 [code = SHINGLES VACCINES (#1)] Encounters Start End Encounter Admission Attending Care Care Encounter Source Date/Time Date/Time Type Type Clinicians Facility Department ID 2019-09-17 2019-09-17 Refill Brice ARHILDA [id number] 00:00:00 00:00:00 [facility] [id number] Surgical [id number] Specialti [id number] es [address] [place] 2019-08-01 2019-08-01 Refill CUCA Bermudez [id number] 00:00:00 00:00:00 [facility] [id number] Surgical [id number] Specialti [id number] es [address] 2019-03-12 2019-03-12 Office Aidan ARHILDA [id number] 10 14:13:03 15:41:22 Visit [facility] [id number] Surgical [id number] Specialti [id number] es [address] Results This patient has no known results.
--- OUTSIDE RECORDS SUMMARY | 2020-02-04 17:50 | XMS REPORT | Clinical Summary ---
:1930 Author Organization [facility] Address [address] [place] [address] Care Team Providers Name Role Phone MD [...] of 2 - PCV13) 10/31/1995 INFLUENZA VACCINE 02/23/2020 Implants Implanted Type Area Auto Leasing Manager Device Shelf Model / Identifier Expiration Serial / Lot Date Accolade Mri Pacemaker - [id number] Cardiac Pacemaker N/A: B [place]STON 11/14/2019 [id number] / Implanted: 01/15/2018 at [facility] (Quantity not on file) Gen erators N/A [employer]- [id number] / [id number] Device Vasclr Clsr Baln Cath 10ml Lkng Syr 6fr 7fr Myn xgrip - [id number] Cardiovascular N/A: CARDINAL 09/21/2018 [id number] / Implanted: 11/13/2016 at [facility] (Quantity not on file) Imp lants N/A [facility] / [id number] Envelope Pcemkr Antbactl Fully Resorb Aigisrxr - [id number] Cardiovascular N/A: [employer] [id number] / Implanted: 01/15/2018 at [facility] (Quantity not on file) Implants N/A / Stent Cor Resolute Integrity Ztrlims-Eltng Otw 2.5x14m m - [id number] Coronary Stents N/A: [employer] [place] 07/31/2017 [id number] / Implanted: 11/13/2016 at [facility] (Quantity not on file) N/A - VASCULAR / [id number] [place] Results Not on fileafter 02/03/2019 Insurance Payer Benefit Plan / Subscriber ID Effective Dates Phone Addre ss Type Group MEDICARE MEDICARE PART A xxxxxxxxxxx 1995-Present [place], [place] Medicare AND B AETNA AETNA PPO OPEN xxxxxx 2000-Present PPO CHOICE Advance Directives For more information, please contact: [phone] Type Date Recorded Patient Product Development Intern Explanati on Advance Directives, Living Will 11/13/2016 6:00 AM and Medical Power of Senior Research Analyst
[2020-02-04] MEDS ORDERED: LORazepam 2 MG/ML VIAL IV PRN (17:58)
[2020-02-04 18:05] VITALS: BMI 23.6
[2020-02-04] MEDS: HYDROMORPHONE HCL 1 MG/ML INJ IV PRN ×2 (18:42→21:48)
[2020-02-04] MEDS ORDERED: HYDROMORPHONE HCL 1 MG/ML INJ ONE (18:51)
[2020-02-04] MEDS ORDERED: SCOPOLAMINE HYDROBROMIDE PATCH TD ONE (20:00)
[2020-02-04 20:30] VITALS: BP 201/70
--- NOTE | 2020-02-04 21:23 | P.HP ---
Certification for Inpatient Patient admitted to: Inpatient With expected LOS: >2 Midnights Practitioner: I am a practitioner with admitting privileges, knowledge of patient current condition, hospital course, and medical plan of care. Services: Services provided to patient in accordance with Admission requirements found in Title 42 Section 412.3 of the Code of Federal Regulations Patient History Date of Service: 02/04/20 Reason for admission: DIVERTILITIS WITH PERFORATION History of Present Illness: MS. DANIELLE CAME WITH ACUTE ABDOMEN, DIVERTICULITIS WITH PERFORATION. SHE NEEDED EMERGENCY SURGERY AND COULD NOT RECOVER DESPITE ALL EFFORTS WITH ABX, DUAL COMBINATION, TPN, SUPPORTIVE CARE ETC. FAMILY AGREED FOR HOSPICE THEY DON'T WANT HER TO SUFFER AND KNOW THAT SHE IS NOT GOING TO SURVIVE. FOR LAST 3 DAYS SHE SLIPPED FROM OBTUNDED STATUS TO COMATOSE STATUS. Allergies amlodipine besylate [From Norvasc] Allergy (Intermediate, Verified 12/18/12 20:18) cough azithromycin Allergy (Intermediate, Verified 12/18/12 20:17) Hives/Rash clonidine Allergy (Intermediate, Verified 12/18/12 20:17) Shortness of breath hydrochlorothiazide Allergy (Intermediate, Verified 12/18/12 20:17) Shortness of breath metoprolol succinate [From Toprol XL] Allergy (Intermediate, Verified 12/18/12 20:17) Nausea/Vomiting tetracycline [Tetracycline] Allergy (Intermediate, Verified 12/18/12 20:16) swelling Tetracyclines Allergy (Verified 01/28/20 21:40) Unknown Home Medications: Furosemide [Lasix*] 20 mg PO DAILY 12/18/12 Glimepiride 4 mg PO BID 12/18/12 Isosorbide [place] [Imdur*] 60 mg PO DAILY 12/18/12 Levothyroxine [Synthroid*] 50 mcg PO [id number] 12/18/12 Losartan Potassium [Cozaar] 100 mg PO DAILY 12/18/12 Potassium Chloride [K-Dur] 20 meq PO DAILY 12/18/12 Rosuvastatin [Crestor*] 20 mg PO BEDTIME 12/18/12 atenoloL [Tenormin*] 50 mg PO DAILY 12/18/12 Apixaban [Eliquis] 5 mg PO ONCE 01/29/20 Clopidogrel Bisulfate [Clopidogrel] 75 mg PO ONCE 01/29/20 Duloxetine HCl 30 mg PO DAILY 01/29/20 Empagliflozin [Jardiance] 25 mg PO DAILY 01/29/20 - Past Medical/Surgical History Diabetic: Yes -: Sleep Apnea -: Reflux -: CAd, CHF, DM -: TIA -: Atrial Fib -: htn -: depression -: hypothyroidism -: 4 heart stents -: hysterectomy -: appendectomy -: pacemaker - Social History Alcohol use: No CD- Drugs: No Caffeine use: Yes Review of Systems is unable to be obtained Physical Examination - Vital Signs Blood Pressure: 201/70 Pulse: 90 Respirations: 18 Pulse Ox (%): 98 - Physical Exam General: Severe distress, Comatose Neck: Supple Respiratory: Diminished Cardiovascular: No edema, Normal S1 S2 Gastrointestinal: Other (POST OP TENDERNSS.) Neurological: Other (COMATOSE, ) Assessment and Plan - Problems (Diagnosis) (1) Septic shock Current Visit: Yes Status: Acute Plan: NOW COMATOSE. ON HOSPICE. IV PAIN MEDS. IV AGITATION MEDS. SCOP PATCHES. MAY LIVE A DAY OR TWO. (2) Diverticular disease of intestine with perforation and abscess Current Visit: Yes Status: Acute Plan: HER PAIN IS MODERATE TO SEVERE AND NEEDS INPATIENT HOSPICE ORAL MEDS OR NOT POSSIBLE WITH COMATOSE STATUS. - Advance Directives Does patient have a Living Will: Yes Does patient have a Durable POA for Healthcare: Yes
[2020-02-05 00:29] VITALS: O2SAT 94
[2020-02-05] MEDS: HYDROMORPHONE HCL 1 MG/ML INJ IV PRN ×2 (01:12→03:19)
--- NOTE | 2020-02-05 10:04 | P.DS ---
Admission Date: 02/04/20 Discharge Date: 02/05/20 Reason for Admission: DIVERTILITIS WITH PERFORATION - Problems (1) Septic shock Current Visit: Yes Status: Acute (2) Diverticular disease of intestine with perforation and abscess Current Visit: Yes Status: Acute Brief History of Present Illness: MS. DANIELLE CAME WITH ACUTE ABDOMEN, DIVERTICULITIS WITH PERFORATION. SHE NEEDED EMERGENCY SURGERY AND COULD NOT RECOVER DESPITE ALL EFFORTS WITH ABX, DUAL COMBINATION, TPN, SUPPORTIVE CARE ETC. FAMILY AGREED FOR HOSPICE THEY DON'T WANT HER TO SUFFER AND KNOW THAT SHE IS NOT GOING TO SURVIVE. FOR LAST 3 DAYS SHE SLIPPED FROM OBTUNDED STATUS TO COMATOSE STATUS. Hospital Course: [place] WITHIN A DAY EXPECTED ON HOSPICE CARE. SHE HAD END STAGE SEPSIS FROM DIVERTICULITIS PERFORATION. Vital Signs/Physical Exam: Temp Pulse Resp BP Pulse Ox 90 10 L 201/70 H 98 02/04/20 21:23 02/05/20 04:00 02/04/20 21:23 02/04/20 21:23 Home Medications: Furosemide [Lasix*] 20 mg PO DAILY 12/18/12 Glimepiride 4 mg PO BID 12/18/12 Isosorbide [place] [Imdur*] 60 mg PO DAILY 12/18/12 Levothyroxine [Synthroid*] 50 mcg PO [id number] 12/18/12 Losartan Potassium [Cozaar] 100 mg PO DAILY 12/18/12 Potassium Chloride [K-Dur] 20 meq PO DAILY 12/18/12 Rosuvastatin [Crestor*] 20 mg PO BEDTIME 12/18/12 atenoloL [Tenormin*] 50 mg PO DAILY 12/18/12 Apixaban [Eliquis] 5 mg PO ONCE 01/29/20 Clopidogrel Bisulfate [Clopidogrel] 75 mg PO ONCE 01/29/20 Duloxetine HCl 30 mg PO DAILY 01/29/20 Empagliflozin [Jardiance] 25 mg PO DAILY 01/29/20
== END 2020-02-05 10:52 | disposition expired | DRG 871 ==
LOC: ERHOLD 17:45 → 2ND 20:44
PROVIDERS: ADMIT Internal Medicine; ATTEND Internal Medicine
DX: A41.9 Sepsis, unspecified organism (principal); R65.21 Severe sepsis with septic shock; R40.20 Unspecified coma; K57.80 Diverticulitis of intestine, part unspecified, with perforation and abscess without bleeding; K21.9 Gastro-esophageal reflux disease without esophagitis; I10 Essential (primary) hypertension; I25.10 Atherosclerotic heart disease of native coronary artery without angina pectoris; E03.9 Hypothyroidism, unspecified; E11.9 Type 2 diabetes mellitus without complications; Z79.84 Long term (current) use of oral hypoglycemic drugs; Z79.890 Hormone replacement therapy; Z79.01 Long term (current) use of anticoagulants; Z79.899 Other long term (current) drug therapy; Z88.1 Allergy status to other antibiotic agents; Z88.8 Allergy status to other drugs, medicaments and biological substances; Z86.73 Personal history of transient ischemic attack (TIA), and cerebral infarction without residual deficits; Z95.5 Presence of coronary angioplasty implant and graft; Z90.710 Acquired absence of both cervix and uterus; Z90.49 Acquired absence of other specified parts of digestive tract; Z95.0 Presence of cardiac pacemaker; Z11.59 Encounter for screening for other viral diseases
CPT/HCPCS: J1170